=== PATIENT | female | born 1965 | race Caucasian/White ===

== ENCOUNTER → 2024-01-17 12:01 | Outpatient (REF) | payer BC, SELFPAY | LOC: HWRAD 12:01 | PROVIDERS: ATTENDING PHYSICIAN Family Medicine | DX: M79.641 Pain in right hand (principal); M79.642 Pain in left hand | CPT/HCPCS: 73110; 73130 ==

== ENCOUNTER → 2024-03-13 12:21 | Outpatient (REF) | payer BC, SELFPAY ==
[2024-03-19 11:17] LABS: HPV, High Risk Not Detected; HPV, High Risk Source Cervical
== END ==
LOC: CLAB 12:21
PROVIDERS: ATTENDING PHYSICIAN Family Medicine; FAMILY PHYSICIAN Advanced Practice Midwife
DX: Z12.4 Encounter for screening for malignant neoplasm of cervix (principal); Z01.419 Encounter for gynecological examination (general) (routine) without abnormal findings; Z11.51 Encounter for screening for human papillomavirus (HPV)
CPT/HCPCS: 87624; G0123

== ENCOUNTER → 2024-04-20 16:59 | Outpatient (REF) | payer BC, SELFPAY | LOC: WDC 16:59 | PROVIDERS: ATTENDING PHYSICIAN Advanced Practice Midwife; FAMILY PHYSICIAN Physician Assistant Medical | DX: Z12.31 Encounter for screening mammogram for malignant neoplasm of breast (principal) | CPT/HCPCS: 77063; 77067 ==

== ENCOUNTER → 2024-06-08 06:46 | Outpatient (REF) | payer BC, SELFPAY | LOC: RAD 06:46 | PROVIDERS: ATTENDING PHYSICIAN Surgery; FAMILY PHYSICIAN Physician Assistant Medical | DX: K62.3 Rectal prolapse (principal) | CPT/HCPCS: 74270 ==

== ENCOUNTER → 2024-06-12 11:34 | Outpatient (REF) | payer BC, SELFPAY ==
[2024-06-12 19:32] LABS: Urine Albumin Negative (Neg - Trace); Urine Bilirubin Negative (Negative); Urine Character Clear (Clear); Urine Color Straw; Urine Glucose Negative (Negative); Urine Ketone Negative (Negative); Urine Leukocyte Negative (Negative); Urine Nitrite Negative (Negative); Urine Occult Blood Negative (Negative); Urine Specific Gravity 1.005 (<1.030); Urine Urobilinogen Negative (Neg - 1+)
== END ==
LOC: CLAB 11:34
PROVIDERS: ATTENDING PHYSICIAN Obstetrics & Gynecology
DX: N39.0 Urinary tract infection, site not specified (principal)
CPT/HCPCS: 81003; 87086

== ENCOUNTER 2024-07-13 05:59 | Inpatient (IN) | payer BC, SELFPAY ==
[2024-07-04 07:23] VITALS: BMI 19.1
[2024-07-04 08:51] LABS: Hematocrit 31.9 % (37.0-47.0); Hemoglobin 10.8 g/dL (12.0-16.0); Mean Corp Hgb Conc. 33.9 g/dL (33.0-37.0); Mean Corpuscular Hgb 31.3 pg (27.0-31.0); Mean Corpuscular Volume 92.5 fL (81.0-99.0); Mean Platelet Volume 11.6 fL (7.4-10.4); Platelet Count 213 10^3/uL (130-400); Red Blood Cell Count 3.45 10^6/uL (4.20-5.40); Red Cell Dist. Width 12.4 % (11.5-14.5); White Blood Cell Count 7.2 10^3/uL (4.8-10.8)
[2024-07-04 09:06] LABS: INR 0.99; PT 12.9 Sec (11.4-14.6)
[2024-07-04 09:07] LABS: APTT 30.4 Sec (23.4-35.0)
[2024-07-04 09:29] LABS: ALT (SGPT) 16 U/L (0-35); AST (SGOT) 27 U/L (14-36); Albumin 3.8 g/dl (3.5-5.0); Alkaline Phosphatase 116 U/L (38-126); Blood Urea Nitrogen 17 mg/dl (7-17); Calcium 9.5 mg/dl (8.4-10.2); Carbon Dioxide 28 mmol/L (22-30); Chloride 107 mmol/L (98-107); Estimated Creatinine Clearance 50 ml/min; Glucose 83 mg/dl (70-99); Potassium 4.1 mmol/L (3.5-5.1); Sodium 140 mmol/L (135-145); Total Bilirubin 0.4 mg/dl (0.2-1.3); eGFR > 60.00
[2024-07-04 10:11] LABS: Glycohemoglobin (HgbA1c) 5.1 % (4.0-5.6)
[2024-07-13] VITALS (15 sets, daily range): BP systolic 5–123; BP diastolic 47–72; BMI 18.0
[2024-07-13] MEDS: Pyridium 200 MG PO (06:33)
[2024-07-13] MEDS: TYLENOL 1000 MG PO (06:33)
[2024-07-13] MEDS: ENTEREG 12 MG PO (06:34)
[2024-07-13] MEDS: NEURONTIN 600 MG PO (06:34)
[2024-07-13] MEDS: HEPARIN 5000 UNITS SC (06:34)
[2024-07-13] MEDS: NORMOSOL-R 1000 IV (06:45)
--- NOTE | 2024-07-13 12:44 | W.IMMPOSTOP ---
Surgical Immed Post Op Note
-
Primary Surgeon: Ralph Clifford MD
Assisting Surgeon: CHRISTIANNE Alejandro
Pre-op Diagnosis: 1) rectal prolapse 2) constipation
Post-op Diagnosis: same
Procedure Performed: 1) robotic sigmoidectomy with rectopexy 2) flexible sigmoidoscopy
Anesthesia Type: general plus local
Specimen / Cultures: sigmoid colon
Estimated Blood Loss: 150 cc
Complications: no immediate
Operative Findings: redundant sigmoid with deep pouch of Humberto
Locke, stents, ureteral ICG by Dr. Her of urology. R stent removed at end of case
See Dr. Raya's notes for his part of the procedure.
Will send to med surg.
[2024-07-13 13:27] LABS: Glucose - Point of Care 124 mg/dl (70-99)
[2024-07-13 13:35] LABS: % Basophils 0.3 % (0-2); % Eosinophils 0.2 % (0-6); % Immature Granulocytes 0.3 % (0-0.5); % Lymphocytes 7.9 % (20.5-51.1); % Monocytes 2.3 % (1.7-9.3); Absolute Basophils 0.1 10^3/uL (0-0.2); Absolute Lymphocytes 1.1 10^3/uL (1.2-3.4); Absolute Monocytes 0.3 10^3/uL (0.1-0.6); Absolute Neutrophils 12.9 10^3/uL (1.4-6.5); Hematocrit 30.6 % (37.0-47.0); Hemoglobin 10.3 g/dL (12.0-16.0); Mean Corp Hgb Conc. 33.7 g/dL (33.0-37.0); Mean Corpuscular Hgb 31.4 pg (27.0-31.0); Mean Corpuscular Volume 93.3 fL (81.0-99.0); Mean Platelet Volume 10.9 fL (7.4-10.4); Nucleated Red Blood Cells % 0 %; Platelet Count 198 10^3/uL (130-400); Red Blood Cell Count 3.28 10^6/uL (4.20-5.40); Red Cell Dist. Width 12.2 % (11.5-14.5); White Blood Cell Count 14.5 10^3/uL (4.8-10.8)
--- NOTE | 2024-07-13 13:42 | W.SUR.POST ---
Surgical Immediate Post Op
Note
Pre Op Diagnosis: Uterovaginal prolapse and rectocele
Post Op Diagnosis: Uterovaginal prolapse and rectocele
Procedure Performed: Robotic total hysterectomy, BSO, uterosacral ligament suspension, culdoplasty, posterior colporrhaphy, right stent removal
Primary Surgeon: Mahamed Raya MD
Secondary Surgeons: see Dr. Clifford's operative note
Anesthesia: General Anesthesia
Estimated Blood Loss: 150cc
Drains/Shunts: Left ureteral stent in place with Locke catheter
Specimens/Cultures: uterus, bilateral tubes and ovaries
Complications: none
Operative Findings: Advanced stage pelvic organ prolapse
[2024-07-13 13:53] LABS: Blood Urea Nitrogen 12 mg/dl (7-17); Calcium 8.1 mg/dl (8.4-10.2); Carbon Dioxide 25 mmol/L (22-30); Chloride 103 mmol/L (98-107); Estimated Creatinine Clearance 53 ml/min; Glucose 114 mg/dl (70-99); Magnesium 2.1 mg/dl (1.6-2.3); Potassium 3.5 mmol/L (3.5-5.1); Sodium 134 mmol/L (135-145); eGFR > 60.00
[2024-07-13] MEDS: D5LR 1000 IV (14:14)
--- NOTE | 2024-07-13 15:52 | PTCARENOTE ---
pt admitted to room 2119 from the PACU. pt alert and oriented to room, call farrar and plan of care with verbalized understanding. pt tolerating sips of water-denies nausea or abdominal discomfort. admission database and assessment completed as
documented. pt resting in bed. call farrar in reach. will observe.
[2024-07-13] MEDS: TYLENOL PO (16:00)
[2024-07-13] MEDS: TORADOL 10 MG IV (18:05)
[2024-07-13] MEDS: TYLENOL 650 MG PO (20:39)
[2024-07-13] MEDS: OCEAN, SALINE MIST 4 SPRAYS NASAL (20:40)
[2024-07-13] MEDS: NON-FORMULARY ITEM 42 MG PO (21:46)
[2024-07-13] MEDS: LAMICTAL 600 MG PO (21:47)
[2024-07-14] VITALS (8 sets, daily range): BP systolic 86–127; BP diastolic 42–68; BMI 19.4
[2024-07-14] MEDS: TORADOL 10 MG IV ×4 (00:36→23:41)
[2024-07-14] MEDS: TYLENOL 650 MG PO ×5 (00:37→20:33)
[2024-07-14] MEDS: D5LR 1000 IV ×2 (02:26→09:21)
[2024-07-14] MEDS: TYLENOL PO ×3 (04:30→23:44)
[2024-07-14] MEDS: TORADOL IV (06:45)
[2024-07-14 07:49] LABS: Blood Urea Nitrogen 9 mg/dl (7-17); Calcium 8.7 mg/dl (8.4-10.2); Carbon Dioxide 28 mmol/L (22-30); Chloride 106 mmol/L (98-107); Estimated Creatinine Clearance 57 ml/min; Glucose 120 mg/dl (70-99); Magnesium 2.1 mg/dl (1.6-2.3); Sodium 136 mmol/L (135-145); eGFR > 60.00
--- NOTE | 2024-07-14 07:58 | W.PN.GYN ---
Today's Communication / Plan
-
1. Remove lazo and left ureteral stent
Physician Note
-
Assessment and Plan:
59 yo woman POD 1 s/p robotic TLH, BSO, uterosacral ligament suspension (USLS), posterior colporrhaphy, right stent removal, Bowel resection and rectopexy (Dr. Clifford): postoperatively she is stable with no acute complaints. Her renal function is
normal and therefore can have her lazo and stent removed.
1. Postop Urogyn Care
-Remove lazo catheter and stent
-Vaginal packing removed on rounds this morning
-BMP: WNL
-CMC: pending
-UOP: adequate
-Diet: per colorectal surgery recommendations
Subjective:
pain well controlled. no acute complaints. has not ambulated due to low blood pressures. Oxygen in place. denies nausea/vomiting, fevers/chills, chest pain or sob.
Objective:
Intake and Output
07/12/24 07/13/24 07/14/24 07/15/24
06:59 06:59 06:59 06:59
Intake Total 1889
Output Total 1929
Balance -40 / -40
Intake:
Oral fluids 120 / 120
IV fluids (Total) 1770 / 1770
Normosol 500 / 500
Output:
Drain Output (Total) 5 / 5
Right Upper Abdomen Kain- 5 / 5
Voss
Urine, Lazo 1924 / 1924
Vital Signs
Temp Pulse Resp BP Pulse Ox
99.3 F 70 16 88/56 100
07/14/24 07:00 07/14/24 07:00 07/14/24 07:00 07/14/24 07:00 07/14/24 07:00
Lab Results
07/14/24 06:38
Exam:
: lazo in place, no significant vaignal bleeding
Abdomen: soft, nontender, nondistended
Incision: clean, dry, intact.
[2024-07-14 08:36] LABS: Hepatitis C Antibody Negative (Negative)
[2024-07-14 09:17] LABS: % Basophils 0.2 % (0-2); % Eosinophils 0.2 % (0-6); % Immature Granulocytes 0.4 % (0-0.5); % Lymphocytes 13.8 % (20.5-51.1); % Monocytes 5.1 % (1.7-9.3); % Neutrophils 80.3 % (42.2-75.2); Absolute Lymphocytes 1.4 10^3/uL (1.2-3.4); Absolute Monocytes 0.5 10^3/uL (0.1-0.6); Absolute Neutrophils 8.1 10^3/uL (1.4-6.5); Hematocrit 25.9 % (37.0-47.0); Hemoglobin 8.7 g/dL (12.0-16.0); Mean Corp Hgb Conc. 33.6 g/dL (33.0-37.0); Mean Corpuscular Hgb 30.7 pg (27.0-31.0); Mean Corpuscular Volume 91.5 fL (81.0-99.0); Mean Platelet Volume 11.2 fL (7.4-10.4); Nucleated Red Blood Cells % 0 %; Platelet Count 154 10^3/uL (130-400); Red Blood Cell Count 2.83 10^6/uL (4.20-5.40); Red Cell Dist. Width 12.2 % (11.5-14.5); White Blood Cell Count 10.1 10^3/uL (4.8-10.8)
[2024-07-14] MEDS: ENTEREG 12 MG PO (09:22)
[2024-07-14] MEDS: PROTONIX 40 MG PO (09:22)
[2024-07-14] MEDS: CYMBALTA DELAYED RELEASE 90 MG PO (09:22)
[2024-07-14] MEDS: OCEAN, SALINE MIST 50 SPRAYS NASAL (09:23)
--- NOTE | 2024-07-14 11:20 | W.PN.CRS1 ---
Today's Communication / Plan
-
Clears
Lovenox
Hospitalist
Continue drain
Assessment/Plan
-
POD#1 Robotic total hysterectomy, BSO, uterosacral ligament suspension, culdoplasty, posterior colporrhaphy, right stent removal
- Hypotensive this morning. Continue IV fluids at 150 mL/h.
-Hemoglobin was rechecked this morning due to decreased of 8.7 from 10.3. Recheck shows 9.1. Will continue to trend in AM.
-Start Lovenox today for DVT prophylaxis. Teds and SCDs in place.
-Hyperglycemia despite n.p.o. status. Will consult hospitalist.
-Continue Locke today. DC in AM.
-OR stent #2 removed at bedside this morning.
-OR pathology pending.
-Continue OR drain until discharge.
-Start on a clear liquid diet.
-Pain control: Tylenol and Toradol standing, Dilaudid as needed.
Subjective Data
Procedure
07/13/2024- Robotic total hysterectomy, BSO, uterosacral ligament suspension, culdoplasty, posterior colporrhaphy, right stent removal
Subjective Data
Date of Service: July 14, 2024
Patient states she feels achy all over but her pain is well-controlled. She has no nausea or vomiting. She is hungry. She is looking forward to getting out of bed.
Objective Data
-
Vital Signs
Temp Pulse Resp BP Pulse Ox
99.7 F 78 18 92/59 98
07/14/24 11:00 07/14/24 11:00 07/14/24 11:00 07/14/24 11:00 07/14/24 11:00
Intake & Output
07/13/24 07/14/24 07/15/24
06:59 06:59 06:59
Intake Total 1889
Output Total 1929
Balance -40 / -40
Intake:
Oral fluids 120 / 120
IV fluids (Total) 1769
Normosol 500 / 500
Output:
Drain Output (Total)
Right Upper Abdomen Kain-
Voss
Urine, Locke 1924 / 1924
Lab Results
07/14/24 06:38
Physical Exam
-
General: No Acute Distress and AOx3
Abdomen: Soft, Non Distended and Non Tender
Skin: Warm and Dry
Incision: Clear, Dry, Intact
[2024-07-14 11:27] LABS: Hematocrit 26.7 % (37.0-47.0); Hemoglobin 9.1 g/dL (12.0-16.0)
--- NOTE | 2024-07-14 13:56 | CON.HOSP ---
Consultation
-
Date/Time Consultation Requested: 07/14/2024
Date/Time Consultation Performed: 07/14/2024
Requesting Provider: Dr Clifford
Performing Provider: Dr Preston
Reason for Consultation: Hyperglycemia and hypotension
Family Physician
-
Family Physician: Stacey Ramos PA-C
Chief Complaint
-
Hyperglycemia and hypotension
History of Present Illness
Patient is a 59 years old female who underwent robotic total hysterectomy/BSO on 07/13. Uneventful procedure.
Patient was found to be mildly hypotensive with SBP in 80s, although without symptoms. In addition patient has been hyperglycemic with blood glucose elevated at 220s while NPO.
Medicine has been requested to follow patient for perioperative management.
Medical History
Past Medical History
Past Medical History: Denies CAD, Cancer, CHF or HTN
Past Surgical History: Reports Other (Umbilical hernia repair, tonsillectomy)
Social History
Tobacco: Non-smoker
Alcohol: None
Drug: None
Personal:
Living: With Family
Allergies / Home Medications
Allergies reflects when Allergies were last updated in [facility].
Home Medications with original date entered in [facility]
Allergy/Medication List:
Allergies
Allergy/AdvReac Type Severity Reaction Status Date / Time
prochlorperazine edisylate Allergy Intermediate Unknown Verified 07/13/24 06:15
[From Compazine]
prochlorperazine maleate Allergy Intermediate Unknown Verified 07/13/24 06:15
[From Struttaazine]
Home Medications
Beano 2 tab PO TID GAS 07/06/24
Florastor 1 tab PO BID Gastrointestinal Issue 07/06/24
clonazepam 0.5 mg tablet 0.5 mg PO TID Mental Health/Anxiety 07/06/24
duloxetine 30 mg capsule,delayed release 90 mg PO DAILY Depression 07/06/24
lamotrigine 200 mg tablet 600 mg PO HS Seizures 07/06/24
lumateperone 42 mg capsule (Caplyta) 42 mg PO HS bipolar 07/06/24
metronidazole 500 mg tablet 500 mg PO .1400.1499.0 bowel prep 07/06/24
mometasone 50 mcg/actuation HFA aerosol inhaler 50 mcg inhalation HS Lung/Breathing Issues 07/06/24
naproxen 500 mg tablet 500 mg PO BID pain/inflam 07/06/24
neomycin 500 mg tablet 1,000 mg PO .[id number] bowel prep 07/06/24
psyllium 1 packet PO BID Constipation 07/06/24
sodium chloride 0.9 % nasal spray aerosol 2 spray intranasal BID Congestion 07/06/24
sodium sul 1.479 gram-potas ch 0.188 gram-magnes sul 0.225 gram tablet (Sutab) 24 tab PO DIRECTED bowel prep 07/06/24
clonazepam 0.5 mg tablet 0.5 mg PO DAILY PRN anxiety 07/13/24
Review of Systems
-
A 12 point Review of Systems was completed except as noted: Yes
Physical Exam
Vital Signs
Vital Signs
Temp Pulse Resp BP Pulse Ox
99.7 F 78 18 92/59 98
07/14/24 11:00 07/14/24 11:00 07/14/24 11:00 07/14/24 11:00 07/14/24 11:00
Physical Exam
General: Well Developed, Well Nourished and No Apparent Distress
HEENT: Normocephalic, Moist Mucous Membranes and Atraumatic
Respiratory: Clear
Cardiac: S1/S2 and Regular Rhythm; Negative Murmur or Rub
GI: Soft, Non Tender, Non Distended and Normal Bowel Sounds
Rectal: Deferred by Provider
Genito-urinary: Locke Catheter (With bloodstained urine without clots)
Musculoskeletal: No Clubbing, No Cyanosis and No Edema
Skin: Negative Rash
Neuro: Awake, Alert, Oriented, AO x 3 and Nonfocal/Grossly Intact
Laboratory Results
-
Laboratory Results
07/14/24 11:17
07/14/24 06:38
PT 12.9 Sec (11.4-14.6) 07/04/24 07:13
INR 0.99 07/04/24 07:13
APTT 30.4 Sec (23.4-35.0) 07/04/24 07:13
Total Bilirubin 0.4 mg/dl (0.2-1.3) 07/04/24 07:13
AST 27 U/L (14-36) 07/04/24 07:13
ALT 16 U/L (0-35) 07/04/24 07:13
Alkaline Phosphatase 116 U/L (38-126) 07/04/24 07:13
Impression / Plan
-
IMPRESSION:
Uterine prolapse, status post robotic total hysterectomy, BSO, uterosacral ligament suspension, culdoplasty, posterior colporrhaphy on 07/13.
Bilateral hydronephrosis status post cystoscopy and bilateral stent placement on 07/13, Locke catheter in place.
Mild asymptomatic hypotension on 07/14.
Acute postoperative anemia with likely dilutional effect
Hyperglycemia while on D5 infusion
Other conditions:
Anxiety/depression/bipolar disorder
PLAN:
Mild asymptomatic hypotension.
Does not appear toxic or in distress on physical exam.
Afebrile.
Postoperative site without problem
WBC improved from 14.5-10
So far response to normotonic solution with improved BP.
Monitor closely
Postoperative anemia noted drop in hemoglobin from 10.8-8 0.7�9.1 also suspect dilutional effect.
Noted with bloodstained urine in Locke catheter without clots.
Monitor closely
Currently no indication for transfusion unless persistent hypotension, or/further drop
Hyperglycemia.
Suspect while on glucose infusion.
No prior history of diabetes.
Check hemoglobin A1c for completeness.
Change IV fluids to lactated Ringer eliminating D5.
Diet has been advanced to clear liquids.
Bipolar disorder, anxiety
Continue preadmission regimen including clonazepam, duloxetine, lamotrigine, Caplyta.
Thank you for allowing us to participate in the care of this patient.
Hospitalist/medicine service will follow along
[2024-07-14] MEDS: LR 1000 IV ×2 (15:05→23:40)
[2024-07-14] MEDS: KLONOPIN 0.5 MG PO ×2 (15:07→21:57)
--- NOTE | 2024-07-14 15:35 | CM ---
Met with patient at bedside; initial assessment completed
Pharmacy verified: [facility] @ [address] [address]
Patient and spouse live in a multilevel home; 2 steps to enter; 10-11 steps between floors; railings present; powder room 1st floor; 2nd floor master bath has stall shower
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
DME: none
SNF/Home Health utilization history: none
Transportation: will provide ride home
Plan: discharge to home; CM will monitor for needs/services
[2024-07-14] MEDS: LOVENOX 40 MG SC (17:24)
[2024-07-14] MEDS: OCEAN, SALINE MIST 1 SPRAYS NASAL (20:34)
[2024-07-14] MEDS: ENTEREG PO (21:01)
[2024-07-14] MEDS: LAMICTAL 600 MG PO (21:57)
[2024-07-14] MEDS: NON-FORMULARY ITEM 42 MG PO (21:57)
[2024-07-15 01:18] VITALS: BP 119/64
[2024-07-15] MEDS: TYLENOL PO ×3 (04:38→23:48)
[2024-07-15 06:00] VITALS: BMI 19.0
[2024-07-15] MEDS: TORADOL 10 MG IV ×4 (06:12→23:42)
[2024-07-15] MEDS: LR 1000 IV ×2 (07:35→14:24)
[2024-07-15 07:50] VITALS: BP 139/89
[2024-07-15 08:29] LABS: % Basophils 0.4 % (0-2); % Eosinophils 1.9 % (0-6); % Immature Granulocytes 0.5 % (0-0.5); % Lymphocytes 7.5 % (20.5-51.1); % Neutrophils 84.7 % (42.2-75.2); Absolute Eosinophils 0.2 10^3/uL (0-0.7); Absolute Immature Granulocytes 0.1 10^3/uL (0-0.05); Absolute Lymphocytes 0.7 10^3/uL (1.2-3.4); Absolute Monocytes 0.5 10^3/uL (0.1-0.6); Absolute Neutrophils 8.4 10^3/uL (1.4-6.5); Hematocrit 29.2 % (37.0-47.0); Mean Corp Hgb Conc. 34.2 g/dL (33.0-37.0); Mean Corpuscular Hgb 32.2 pg (27.0-31.0); Mean Corpuscular Volume 93.9 fL (81.0-99.0); Mean Platelet Volume 11.4 fL (7.4-10.4); Nucleated Red Blood Cells % 0 %; Platelet Count 168 10^3/uL (130-400); Red Blood Cell Count 3.11 10^6/uL (4.20-5.40); Red Cell Dist. Width 12.5 % (11.5-14.5); White Blood Cell Count 9.9 10^3/uL (4.8-10.8)
[2024-07-15] MEDS: CYMBALTA DELAYED RELEASE 90 MG PO (08:36)
[2024-07-15] MEDS: PROTONIX 40 MG PO (08:36)
[2024-07-15] MEDS: TYLENOL 650 MG PO ×4 (08:36→20:25)
[2024-07-15] MEDS: KLONOPIN 0.5 MG PO ×3 (08:36→21:39)
[2024-07-15] MEDS: ENTEREG PO ×2 (08:37→20:25)
[2024-07-15] MEDS: OCEAN, SALINE MIST 50 SPRAYS NASAL (08:37)
[2024-07-15 09:41] LABS: Blood Urea Nitrogen 9 mg/dl (7-17); Calcium 9.2 mg/dl (8.4-10.2); Carbon Dioxide 29 mmol/L (22-30); Chloride 106 mmol/L (98-107); Estimated Creatinine Clearance 45 ml/min; Glucose 86 mg/dl (70-99); Potassium 4.1 mmol/L (3.5-5.1); Sodium 138 mmol/L (135-145); eGFR > 60.00
[2024-07-15] MEDS: DILAUDID 0.5 MG IV (09:44)
--- NOTE | 2024-07-15 09:49 | W.PN.HOSP.TC ---
Today's Communication/Plan
-
Continue to monitor and supportive care.
Assessment / Plan
Assessment / Plan
Physical exam:
General: Well Developed, Well Nourished and No Apparent Distress
HEENT: Normocephalic, Atraumatic and Moist Mucous Membranes
Respiratory: Clear to Auscultation; Negative Wheezes, Rales or Rhonchi
Cardiac: Regular Rhythm and S1/S2
GI: Postop findings. Drain in place. Soft, Mild Tender and Nondistended
Musculoskeletal: No Clubbing, No Cyanosis and No Edema
Neuro: Awake, Alert and Oriented
Psych: Calm
A/P:
IMPRESSION:
Uterine prolapse, status post robotic total hysterectomy, BSO, uterosacral ligament suspension, culdoplasty, posterior colporrhaphy on 07/13.
Bilateral hydronephrosis status post cystoscopy and bilateral stent placement on 07/13, Locke catheter in place.
Mild asymptomatic hypotension on 07/14.
Acute postoperative anemia with likely dilutional effect
Hyperglycemia while on D5 infusion
Other conditions:
Anxiety/depression/bipolar disorder
PLAN:
Mild asymptomatic hypotension.
Does not appear toxic or in distress on physical exam.
Afebrile.
Postoperative site without problem and surgery advancing diet
WBC improved from 14.5-10-->9.9 today
So far response to normotonic solution with improved BP. Latest BP 139/89
Monitor closely
Postoperative anemia noted drop in hemoglobin from 10.8-8 0.7�9.1 also suspect dilutional effect. Today Hb is 10
Noted with bloodstained urine in Locke catheter without clots.
Monitor closely
Currently no indication for transfusion unless persistent hypotension, or/further drop
Hyperglycemia.
Suspect while on glucose infusion.
No prior history of diabetes.
Check hemoglobin A1c for completeness-->5.0
Change IV fluids to lactated Ringer eliminating D5.
Diet has been advanced to clear liquids.
Bipolar disorder, anxiety
Continue preadmission regimen including clonazepam, duloxetine, lamotrigine, Caplyta.
Thank you for allowing us to participate in the care of this patient.
Hospitalist/medicine service will follow along
Anticipated Discharge: 24 - 48 hours
Subjective/Interval History
-
Date of Service: July 15, 2024
Patient more abdominal pain today but on the other hand no chest pain or shortness of breath or lightheadedness. Overall feels better.
Objective Data
-
Labs:
Laboratory Results
07/15/24
08:15
WBC 9.9
Hgb 10.0 L
Hct 29.2 L
Plt Count 168
Sodium 138
Potassium 4.1
Chloride 106
Carbon Dioxide 29
BUN 9
Creatinine 1.0
Glucose 86
Calcium 9.2
Vital Signs:
Vital Signs
Temp Pulse Resp BP Pulse Ox
98.7 F 77 16 139/89 98
07/15/24 07:50 07/15/24 07:50 07/15/24 07:50 07/15/24 07:50 07/15/24 07:50
I&O
07/14/24 07/15/24 07/16/24
06:59 06:59 06:59
Intake Total 1890 / 1890 1900 / 1900 850 / 850
Output Total 1929 / 1930 3430 / 3430 1840 / 1840
Balance -40 / -40 -1530 / -1530 -990 / -990
--- NOTE | 2024-07-15 13:57 | W.PN.CRS1 ---
Today's Communication / Plan
-
Advance diet
Assessment/Plan
-
59 yo female with h/o rectal/pelvic prolapse now POD #2 Robotic sigmoidectomy with rectopexy, total hysterectomy, BSO, uterosacral ligament suspension, culdoplasty, posterior colporrhaphy
AFVSS
Labs stable
+flatus/stools, tolerating CLD
Stents/lazo out and patient voiding with some hesitancy but feels she is emptying
-Advance to FLD
-IVF at 75ml/hr
-Continue Lovenox today for DVT prophylaxis. Teds and SCDs in place.
-OR pathology pending.
- C/W home meds
-Continue EMILY drain until discharge.
-Pain control: Tylenol and Toradol standing, Oxycodone, Dilaudid as needed.
Subjective Data
Procedure
07/13/2024- Robotic sigmoidectomy with rectopexy, total hysterectomy, BSO, uterosacral ligament suspension, culdoplasty, posterior colporrhaphy, right stent removal
Subjective Data
Date of Service: July 15, 2024
Patient seen and examined at bedside. Denies n/v. Pain a little worse today, required a dose of dilaudid earlier. Passing flatus and liquid stools. Episode of incontinence last night. Voiding with some hesitancy but able to empty her bladder.
Objective Data
-
Vital Signs
Temp Pulse Resp BP Pulse Ox
98.7 F 77 16 139/89 98
07/15/24 07:50 07/15/24 07:50 07/15/24 07:50 07/15/24 07:50 07/15/24 08:00
Intake & Output
07/14/24 07/15/24 07/16/24
06:59 06:59 06:59
Intake Total 1890 / 1890 1900 / 1900 850 / 850
Output Total 1930 / 0 3430 / 3430 1840 / 1840
Balance -40 / -40 -1530 / -1530 -990 / -990
Intake:
Oral fluids 120 / 120 600 / 600
IV fluids (Total) 1770 / 1770 1300 / 1300 850 / 850
Normosol 500 / 500
Output:
Drain Output (Total) 80 / 80 90 / 90
Right Upper Abdomen Kain- 80 / 80 90 / 90
Voss
Urine, Lazo 1925 / 192 3350 / 3350 1750 / 1750
Other:
Number of unmeasured liquid
stools
Rectum 1
Lab Results
07/15/24 08:15
07/15/24 08:15
Physical Exam
-
General: No Acute Distress and AOx3
Abdomen: Soft, Non Distended, Non Tender and Other (EMILY with SSF)
Skin: Warm and Dry
Incision: Clear, Dry, Intact (dermabond)
[2024-07-15 15:30] VITALS: BP 115/68
[2024-07-15] MEDS: ROXICODONE 5 MG PO ×2 (16:10→20:29)
[2024-07-15] MEDS: LOVENOX 40 MG SC (17:45)
[2024-07-15] MEDS: OCEAN, SALINE MIST 1 SPRAYS NASAL (20:25)
[2024-07-15] MEDS: NON-FORMULARY ITEM 42 MG PO (21:39)
[2024-07-15] MEDS: LAMICTAL 600 MG PO (21:39)
[2024-07-15 23:18] VITALS: BP 128/74
[2024-07-16] MEDS: LR 1000 IV (03:00)
[2024-07-16] MEDS: TYLENOL PO (04:32)
[2024-07-16] MEDS: TORADOL 10 MG IV ×2 (06:00→12:15)
[2024-07-16 07:40] VITALS: BP 112/64
[2024-07-16] MEDS: TYLENOL 650 MG PO ×3 (08:33→16:29)
[2024-07-16] MEDS: CYMBALTA DELAYED RELEASE 90 MG PO (08:33)
[2024-07-16] MEDS: OCEAN, SALINE MIST 2 SPRAYS NASAL (08:33)
[2024-07-16] MEDS: ENTEREG PO (08:34)
[2024-07-16] MEDS: PROTONIX 40 MG PO (08:34)
[2024-07-16] MEDS: KLONOPIN 0.5 MG PO ×2 (08:34→16:29)
--- NOTE | 2024-07-16 09:09 | W.PN.HOSP.TC ---
Today's Communication/Plan
-
Medically clear for discharge. Rest of plan per surgery.
Assessment / Plan
Assessment / Plan
Physical exam:
General: Well Developed, Well Nourished and No Apparent Distress
HEENT: Normocephalic, Atraumatic and Moist Mucous Membranes
Respiratory: Clear to Auscultation; Negative Wheezes, Rales or Rhonchi
Cardiac: Regular Rhythm and S1/S2
GI: Postop findings. Drain in place. Soft, Non-Tender and Nondistended
Musculoskeletal: No Clubbing, No Cyanosis and No Edema
Neuro: Awake, Alert and Oriented
Psych: Calm
A/P:
IMPRESSION:
Uterine prolapse, status post robotic total hysterectomy, BSO, uterosacral ligament suspension, culdoplasty, posterior colporrhaphy on 07/13.
Bilateral hydronephrosis status post cystoscopy and bilateral stent placement on 07/13, Locke catheter in place.
Mild asymptomatic hypotension on 07/14.
Acute postoperative anemia with likely dilutional effect
Hyperglycemia while on D5 infusion
Other conditions:
Anxiety/depression/bipolar disorder
PLAN:
Mild asymptomatic hypotension.
Does not appear toxic or in distress on physical exam.
Afebrile.
Postoperative site without problem and surgery advancing diet
WBC improved from 14.5-->7.9 today
So far response to normotonic solution with improved BP. Latest BP 112/64 today
Can stop IV fluids today.
Medically stable for discharge but defer to surgery as to readiness from surgical standpoint.
Postoperative anemia noted drop in hemoglobin from 10.8-8 0.7�9.1 also suspect dilutional effect. Yesterday Hb was 10 and today 9.3 with also component of dilutional.
Noted with bloodstained urine in Locke catheter without clots.
Monitor closely
Currently no indication for transfusion
Hyperglycemia.
Suspect while on glucose infusion.
No prior history of diabetes.
Check hemoglobin A1c for completeness-->5.0
Change IV fluids to lactated Ringer eliminating D5.
Diet has been advanced to low residue
Bipolar disorder, anxiety
Continue preadmission regimen including clonazepam, duloxetine, lamotrigine, Caplyta.
Thank you for allowing us to participate in the care of this patient.
Hospitalist/medicine service will sign off but please do not hesitate to contact us if any questions or concerns.
Anticipated Discharge: Today
Subjective/Interval History
-
Date of Service: July 16, 2024
Blood pressure stable. No new complaints. Tolerating diet. Ambulating. No chest pain or shortness of breath or lightheadedness.
Objective Data
-
Labs:
Laboratory Results
07/16/24
08:27
WBC Pending
Hgb Pending
Hct Pending
Plt Count Pending
Sodium Pending
Potassium Pending
Chloride Pending
Carbon Dioxide Pending
BUN Pending
Creatinine Pending
Glucose Pending
Calcium Pending
Vital Signs:
Vital Signs
Temp Pulse Resp BP Pulse Ox
98.7 F 78 14 112/64 96
07/16/24 07:40 07/16/24 07:40 07/16/24 07:40 07/16/24 07:40 07/16/24 07:40
I&O
07/15/24 07/16/24 07/17/24
06:59 06:59 06:59
Intake Total 1900 / 1900 2710 / 2710
Output Total 3430 / 3430 2615 / 2615
Balance -1530 / -1530 95 / 95
[2024-07-16 09:11] LABS: Hematocrit 27.3 % (37.0-47.0); Hemoglobin 9.3 g/dL (12.0-16.0); Mean Corp Hgb Conc. 34.1 g/dL (33.0-37.0); Mean Corpuscular Volume 93.8 fL (81.0-99.0); Mean Platelet Volume 11.4 fL (7.4-10.4); Platelet Count 187 10^3/uL (130-400); Red Blood Cell Count 2.91 10^6/uL (4.20-5.40); Red Cell Dist. Width 12.2 % (11.5-14.5); White Blood Cell Count 7.9 10^3/uL (4.8-10.8)
[2024-07-16 09:58] LABS: Blood Urea Nitrogen 9 mg/dl (7-17); Calcium 9.1 mg/dl (8.4-10.2); Carbon Dioxide 30 mmol/L (22-30); Chloride 105 mmol/L (98-107); Estimated Creatinine Clearance 50 ml/min; Glucose 84 mg/dl (70-99); Potassium 3.8 mmol/L (3.5-5.1); Sodium 138 mmol/L (135-145); eGFR > 60.00
--- NOTE | 2024-07-16 12:45 | W.PN.CRS1 ---
Today's Communication / Plan
-
LRD
Assessment/Plan
-
59 yo female with h/o rectal/pelvic prolapse now POD #3 Robotic sigmoidectomy with rectopexy, total hysterectomy, BSO, uterosacral ligament suspension, culdoplasty, posterior colporrhaphy
AFVSS
Labs stable
+flatus/stools, tolerating fld
-Advance to LRD
-D/C IVF
-Continue Lovenox today for DVT prophylaxis. Teds and SCDs in place.
-OR pathology pending.
- C/W home meds
-Continue EMILY drain until discharge.
-Pain control: Tylenol and Toradol standing, Oxycodone, Dilaudid as needed.
Tentative d/c later today vs tomorrow pending diet tolerance
Subjective Data
Procedure
07/13/2024- Robotic sigmoidectomy with rectopexy, total hysterectomy, BSO, uterosacral ligament suspension, culdoplasty, posterior colporrhaphy, right stent removal
Subjective Data
Date of Service: July 16, 2024
Patient seen and examined at bedside with Dr. Mcnulty. Cramping pain improved. Passing flatus and stools. Having more control over bm's. Tolerating diet without n/v.
Objective Data
-
Vital Signs
Temp Pulse Resp BP Pulse Ox
98.7 F 78 14 112/64 96
07/16/24 07:40 07/16/24 07:40 07/16/24 07:40 07/16/24 07:40 07/16/24 07:40
Intake & Output
07/15/24 07/16/24 07/17/24
06:59 06:59 06:59
Intake Total 1900 / 1900 2710 / 2710
Output Total 3430 / 3430 2615 / 2615
Balance -1530 / -1530 95 / 95
Intake:
Oral fluids 600 / 600 960 / 960
IV fluids (Total) 1300 / 1300 1750 / 1750
Output:
Drain Output (Total) 80 / 80 165 / 165
Right Upper Abdomen Kain- 80 / 80 165 / 165
Voss
Urine, Locke 3350 / 3350 1750 / 1750
Urine, Voided 700 / 700
Other:
Number of approximated MODERATE 1
amounts of urine
Number of unmeasured liquid
stools
Rectum 1
Lab Results
07/16/24 08:27
07/16/24 08:27
Physical Exam
-
General: No Acute Distress and AOx3
Abdomen: Soft, Non Distended, Non Tender and Other (EMILY with SSF)
Skin: Warm and Dry
Incision: Clear, Dry, Intact (dermabond)
[2024-07-16 15:15] VITALS: BP 116/66
--- NOTE | 2024-07-16 16:49 | W.DCSUMMARY ---
Discharge Summary
Discharge Data
Date of Admission: 07/13/24
Date of Discharge: 07/16/24
-
Pending Results: No
Hospital Course
59 yo female with h/o rectal/pelvic prolapse who presented for operative management with robotic sigmoidectomy with rectopexy, total hysterectomy, BSO, uterosacral ligament suspension, culdoplasty, posterior colporrhaphy. She tolerated the procedure
well without complication. She was able to void without difficulty after removal of lazo. She was able to tolerate dietary advancements with passage of stool and flatus. Pain was well managed with oral agents. The EMILY drain which was placed
intraoperatively was removed on day of discharge.
Discharge Plan
-
Patient Disposition: Home (Routine Discharge)
Discharge Diagnosis/Procedures: Robotic sigmoidectomy with rectopexy, total hysterectomy, BSO, uterosacral ligament suspension, culdoplasty, posterior colporrhaphy
Condition: Good
Diet: Low Fiber
Activity: No strenuous activity
Additional Activity: Do not lift over 10lbs (gallon of milk)
Driving Restrictions: Wait until off narcotics/comfortable twisting
Bathing Restrictions: OK to Shower
Wound Care: Wash incisions gently with soap and water. Allow the glue to flake off on its own. Cover the area where your drain was with a dry gauze dressing and change daily after showering. Once drainage no longer noted, ok to leave dressing off
Activity Restrictions/Additional Instructions:
Call your surgeon if you have a fever >100.5, nausea or vomiting or worsening abdominal pain
Referrals:
Evelio Clifford MD [Active] - in two to four weeks
Stacey Ramos PA-C [Family Provider] -
Mahamed Raya MD [Active] - in two to four weeks
Prescriptions:
New
oxycodone 5 mg tablet
5 mg PO Q4HPRN PRN (Reason: breakthrough/severe pain) Qty: 20 0RF
acetaminophen [acetaminophen] 325 mg tablet
650 mg PO Q4HPRN PRN (Reason: mild pain) Qty: 1 0RF
Continued
lamotrigine 200 mg Tablet
600 mg PO HS
clonazepam 0.5 mg Tablet
0.5 mg PO TID
naproxen 500 mg Tablet
500 mg PO BID
duloxetine 30 mg Capsule,Delayed Release(Dr/Ec)
90 mg PO DAILY
sodium chloride 0.9 % Aerosol,[place]
2 spray INTRANASAL BID
Caplyta 42 mg Capsule
42 mg PO HS
mometasone 50 mcg/actuation Hfa Aerosol Inhaler
50 mcg INHALATION HS
Rx Instructions:
2 sprays at bedtime
Beano
2 tab PO TID
Florastor
1 tab PO BID
clonazepam 0.5 mg Tablet
0.5 mg PO DAILY PRN (Reason: anxiety)
Rx Instructions:
may take an additional 0.5mg po as needed, along with the TID dose.
Held
psyllium Packet
1 packet PO BID
Hold Instructions: Resume on 08/06/24. hold until your follow up appointment
Discontinued
metronidazole 500 mg Tablet
500 mg PO ..0
Rx Instructions:
Pre op the day before surgery
neomycin 500 mg Tablet
1,000 mg PO .
Rx Instructions:
Pre op the day before surgery
Sutab 1.479-0.188- 0.225 gram Tablet
24 tab PO DIRECTED
Rx Instructions:
Bowel prep afternoon/evening before surgery
Discharge Orders:
Discharge Patient (As Directed); Ordered 07/16/24
Ordered By: Tatiana Flower
Discharge Date and Time
Print Language: AMHARIC
== END 2024-07-16 18:15 | disposition home or self-care (01) | DRG 330 ==
LOC: 2 SOUTH 05:59
PROVIDERS: Obstetrics & Gynecology; Physician Assistant; Specialist; ADMITTING PHYSICIAN Surgery; CONSULT PHYSICIAN Hospitalist; FAMILY PHYSICIAN Physician Assistant Medical
PROC: 0USG4ZZ Reposition Vagina, Percutaneous Endoscopic Approach (ICD-10-PCS; 2024-07-13)
PROC: 0UT74ZZ Resection of Bilateral Fallopian Tubes, Percutaneous Endoscopic Approach (ICD-10-PCS; 2024-07-13)
PROC: 0DTN4ZZ Resection of Sigmoid Colon, Percutaneous Endoscopic Approach (ICD-10-PCS; 2024-07-13)
PROC: 0JQC3ZZ Repair Pelvic Region Subcutaneous Tissue and Fascia, Percutaneous Approach (ICD-10-PCS; 2024-07-13)
PROC: 0UT94ZZ Resection of Uterus, Percutaneous Endoscopic Approach (ICD-10-PCS; 2024-07-13)
PROC: 8E0W4CZ Robotic Assisted Procedure of Trunk Region, Percutaneous Endoscopic Approach (ICD-10-PCS; 2024-07-13)
PROC: 0T788DZ Dilation of Bilateral Ureters with Intraluminal Device, Via Natural or Artificial Opening Endoscopic (ICD-10-PCS; 2024-07-13)
PROC: 0DJD8ZZ Inspection of Lower Intestinal Tract, Via Natural or Artificial Opening Endoscopic (ICD-10-PCS; 2024-07-13)
PROC: 0DSP4ZZ Reposition Rectum, Percutaneous Endoscopic Approach (ICD-10-PCS; 2024-07-13)
DX: K62.3 Rectal prolapse (principal); N13.39 Other hydronephrosis; Q43.8 Other specified congenital malformations of intestine; K59.00 Constipation, unspecified; N81.4 Uterovaginal prolapse, unspecified; N80.03 Adenomyosis of the uterus; D25.9 Leiomyoma of uterus, unspecified
CPT/HCPCS: 88305; 88307; 36415; 80048; 80053; 82962; 83036; 83735; 85014; 85018; 85025; 85027; 85610; 85730; 86803; 86850; 86900; 86901; 93005; J1335

== ENCOUNTER → 2024-09-14 16:47 | Outpatient (REF) | payer BC, SELFPAY ==
[2024-09-14 17:24] LABS: % Basophils 0.9 % (0-2); % Eosinophils 4.1 % (0-6); % Immature Granulocytes 0.3 % (0-0.5); % Lymphocytes 22.8 % (20.5-51.1); % Monocytes 6.5 % (1.7-9.3); % Neutrophils 65.4 % (42.2-75.2); Absolute Basophils 0.1 10^3/uL (0-0.2); Absolute Eosinophils 0.4 10^3/uL (0-0.7); Absolute Monocytes 0.6 10^3/uL (0.1-0.6); Absolute Neutrophils 5.7 10^3/uL (1.4-6.5); Hematocrit 29.3 % (37.0-47.0); Hemoglobin 9.8 g/dL (12.0-16.0); Mean Corp Hgb Conc. 33.4 g/dL (33.0-37.0); Mean Corpuscular Hgb 31.2 pg (27.0-31.0); Mean Corpuscular Volume 93.3 fL (81.0-99.0); Mean Platelet Volume 11.5 fL (7.4-10.4); Nucleated Red Blood Cells % 0 %; Platelet Count 218 10^3/uL (130-400); Red Blood Cell Count 3.14 10^6/uL (4.20-5.40); Red Cell Dist. Width 13.1 % (11.5-14.5); White Blood Cell Count 8.8 10^3/uL (4.8-10.8)
[2024-09-14 17:51] LABS: ALT (SGPT) 24 U/L (0-35); AST (SGOT) 29 U/L (14-36); Albumin 4.1 g/dl (3.5-5.0); Alkaline Phosphatase 94 U/L (38-126); Blood Urea Nitrogen 20 mg/dl (7-17); Calcium 9.6 mg/dl (8.4-10.2); Carbon Dioxide 29 mmol/L (22-30); Chloride 99 mmol/L (98-107); Glucose 74 mg/dl (70-99); Potassium 4.6 mmol/L (3.5-5.1); Sodium 138 mmol/L (135-145); Total Bilirubin 0.4 mg/dl (0.2-1.3); Total Protein 6.8 g/dl (6.3-8.2); eGFR > 60.00
== END ==
LOC: REG 16:47
PROVIDERS: ATTENDING PHYSICIAN Surgery; FAMILY PHYSICIAN Physician Assistant Medical
DX: R53.83 Other fatigue (principal)
CPT/HCPCS: 36415; 80053; 85025

== ENCOUNTER 2024-09-21 05:02 | Emergency (ER) | payer BC, SELFPAY ==
[2024-09-21] VITALS (8 sets, daily range): BP systolic 99–129; BP diastolic 61–80; PULSE 70–78
[2024-09-21 05:38] LABS: % Eosinophils 6.2 % (0-6); % Immature Granulocytes 0.7 % (0-0.5); % Lymphocytes 37.5 % (20.5-51.1); % Monocytes 5.5 % (1.7-9.3); % Neutrophils 49.1 % (42.2-75.2); Absolute Basophils 0.1 10^3/uL (0-0.2); Absolute Eosinophils 0.4 10^3/uL (0-0.7); Absolute Immature Granulocytes 0.1 10^3/uL (0-0.05); Absolute Lymphocytes 2.5 10^3/uL (1.2-3.4); Absolute Monocytes 0.4 10^3/uL (0.1-0.6); Absolute Neutrophils 3.3 10^3/uL (1.4-6.5); Hematocrit 27.1 % (37.0-47.0); Mean Corp Hgb Conc. 33.2 g/dL (33.0-37.0); Mean Corpuscular Hgb 29.9 pg (27.0-31.0); Nucleated Red Blood Cells % 0 %; Platelet Count 204 10^3/uL (130-400); Red Blood Cell Count 3.01 10^6/uL (4.20-5.40); Red Cell Dist. Width 13.1 % (11.5-14.5); White Blood Cell Count 6.8 10^3/uL (4.8-10.8)
[2024-09-21] MEDS: ZOFRAN 4 MG IV (06:42)
[2024-09-21 07:09] LABS: ALT (SGPT) 23 U/L (0-35); AST (SGOT) 27 U/L (14-36); Albumin 3.4 g/dl (3.5-5.0); Alkaline Phosphatase 86 U/L (38-126); Blood Urea Nitrogen 16 mg/dl (7-17); Calcium 8.8 mg/dl (8.4-10.2); Carbon Dioxide 28 mmol/L (22-30); Chloride 105 mmol/L (98-107); Glucose 126 mg/dl (70-99); Potassium 4.2 mmol/L (3.5-5.1); Sodium 138 mmol/L (135-145); Total Bilirubin 0.3 mg/dl (0.2-1.3); Total Protein 5.6 g/dl (6.3-8.2); eGFR > 60.00
[2024-09-21 07:28] LABS: Urine Albumin Negative (Neg - Trace); Urine Bilirubin Negative (Negative); Urine Character Clear (Clear); Urine Color Yellow; Urine Glucose Negative (Negative); Urine Ketone Negative (Negative); Urine Leukocyte Negative (Negative); Urine Nitrite Negative (Negative); Urine Occult Blood Negative (Negative); Urine Urobilinogen Negative (Neg - 1+)
[2024-09-21] MEDS: NSS 500 IV (07:57)
[2024-09-21 09:19] LABS: TSH 1.06 uIU/ml (0.47-4.68)
--- NOTE | 2024-09-21 09:33 | ED.GENMED ---
History of Present Illness
General
Chief Complaint: Fainting Sensation
Source: patient and spouse
Time Seen by Provider: 09/21/24 06:22
History of Present Illness
History of Present Illness:
59-year-old female who presents after she got up to the bathroom and felt extremely 'dizzy' and fell to the ground. She states she does not suspect she lost consciousness but her heard her fall. Patient states she just feels lightheaded.
She then became very weak and her could not get her up. On my evaluation she just complains of feeling dizzy which she describes as lightheadedness. There is room spinning dizziness. No motor weakness. No chest pain. No shortness of
breath. No palpitations. No melena. No hematochezia. EMS reported that she did vomit and looked dark. states he did not see blood. She has not been taking any NSAIDs or aspirin as per the patient's . The patient also has just
been feeling very fatigued over the last few weeks at the end of the day. No obvious etiology.
Past History
Past History
ED Past Medical History: Psychiatric (bipolar) and Other (Rectal prolapse)
Social History
Tobacco: Non-smoker
Personal:
Living: with family
Phy Exam
Physical Exam
Physical Exam:
CONSTITUTIONAL Patient alert and oriented to person, place and time. Well-appearing. Vital signs reviewed.
HEAD atraumatic, normocephalic.
EYES eyelids normal to inspection, Extraocular muscles intact, Conjunctiva normal, Sclera normal.
NECK normal range of motion, Trachea midline, no jugular venous distention.
RESPIRATORY CHEST No respiratory distress noted, Chest expansion equal, Bilateral breath sounds clear.
CARDIOVASCULAR regular rate and rhythm, Heart sounds normal.
ABDOMEN abdomen nontender, Bowel sounds normal. No distention.
Rectal exam, heme-negative
BACK normal inspection, no obvious deformities
UPPER EXTREMITY , Motor strength normal, no cyanosis, no edema. Does have tenderness noted to the AC joint on the left. No joint effusion noted
LOWER EXTREMITY range of motion normal, Motor strength normal, no cyanosis, no edema.
NEURO Speech normal, No focal motor deficits, Jennifer coma scale 15, Memory normal, Cranial Nerves intact to screening exam.
SKIN skin warm, dry, and normal in color.
Course
Orders/Labs/Results
Orders:
Orders
09/21/24 05:04
Electrocardiogram (*1) Urgent
Reason for Study: Syncope
09/21/24 05:05
EKG- Treatment ONCE
09/21/24 05:16
Type+Screen Urgent
Complete Blood Count/With Diff Urgent
09/21/24 06:35
Ondansetron Injectable [Zofran] 4 mg .ROUTE .[facility]
09/21/24 06:39
Ondansetron Injectable [Zofran] 4 mg IV NOW STA
09/21/24 06:42
Comprehensive Metabolic Panel Urgent
Comment: REDRAW
Lyme Progressive Urgent
Comment: ADD ON
TSH Urgent
Comment: ADD ON
09/21/24 07:04
Urinalysis Reflex To Culture Urgent
Date Specimen was Collected: 09/21/24
Time Specimen was Collected: 07:02
09/21/24 07:54
0.9% Sodium Chloride 500 ml [Nss] 500 ml IV BOLUS
09/21/24 08:08
Add On- LAB Urgent
Tests Added?: tsh
09/21/24 08:36
Shoulder, Left, Trauma CR [CR Shoulder, Trauma - Left] Urgent
Comment:
Reason For Exam: fall
09/21/24 08:40
Add On- LAB Urgent
Tests Added?: lyme progressive
09/21/24 09:32
Sling Left-Treatment ONCE
Abnormal Lab Results
09/21/24 09/21/24
05:16 06:42
RBC 3.01 L 10^6/uL
(4.20-5.40)
Hgb 9.0 L g/dL
(12.0-16.0)
Hct 27.1 L %
(37.0-47.0)
MPV 11.0 H fL
(7.4-10.4)
Abs Immat Gran (auto) 0.1 H 10^3/uL
(0-0.05)
Immature Gran % 0.7 H %
(0-0.5)
Eosinophils % 6.2 H %
(0-6)
Glucose 126 H mg/dl
(70-99)
Total Protein 5.6 L g/dl
(6.3-8.2)
Albumin 3.4 L g/dl
(3.5-5.0)
09/21/24 05:16
09/21/24 06:42
Vital Signs
Initial and Last Documented VS:
Initial Vital Signs
BP
129/80
09/21/24 05:08
Last Documented Vital Signs
Temp Pulse Resp BP Pulse Ox
97.2 F 67 12 101/61 100
09/21/24 05:10 09/21/24 08:15 09/21/24 08:15 09/21/24 08:00 09/21/24 08:15
MDM/Problems Addressed
MDM/Problems Addressed:
Clavicle fracture, near syncope, suspected vasovagal event, urinary retention
*Radiology
Radiology exam reviewed: preliminary read by ED provider (Clavicle fracture)
*Pulse Oximetry
Patient hypoxic: no
*EKG
Interpreted by ED Provider?: Yes
Interpretation: normal
Rate: normal
Rhythm: sinus
[place]: normal axis
QRS Pattern: normal QRS
Ischemia: no ischemia
*[place] Interpretation
Rate: normal
Interpretation: normal
Rhythm: sinus
*Critical Care Note
Total Time (30-74mins, 75-104mins- exclusive of procedures): Not Applicable
Data Reviewed
Review of Other/Old Records Reveals: Labs, Operative Reports and Discharge Summary (From June 2024)
Source: patient
Further Testing Considered But Not Given:
Consider CT but no overt head injury
Patient Management
Escalation/DeEscalation of care consider admission/obs:
Patient feels better. Given IV fluids. Rectal heme-negative. No further vomiting. No real risk for GI bleed. She does have a mild anemia that she has had over the last few checks. suspect vasovagal response as she was going to the bathroom and
full bladder. She continued to have a full bladder here in the emergency department and put out 900 cc of urine. On reassessment has been able to urinate normally. Does have a distal clavicle fracture. Sling applied. Patient is now ambulatory.
No chest pain. No suspicion for arrhythmia. She does have a normally low blood pressure and I suspect after getting out of bed in the middle of the night having to urinate her blood pressure dropped and she had a near syncopal event. I did
recommend close follow-up for her mild anemia. Results are similar to back in June.
ED Attending Note
-
Portions of this chart may have been created with voice recognition software.� Occasional wrong word or��sound alike� substitutions may have occurred due to the inherent limitations of voice recognition software.
Discharge Plan
Departure
Patient Disposition: Home (Routine Discharge)
Date of Disposition: 09/21/24
Time of Disposition: 09:38
Patient with high blood pressure during this ER visit?: No
Discharge Problem:
Near syncope, Clavicle fracture, Anemia
Instructions: Clavicle fracture, Near Fainting (DC)
Prescriptions:
No Action
lamotrigine 200 mg Tablet
600 mg PO HS
clonazepam 0.5 mg Tablet
0.5 mg PO TID
psyllium Packet
1 packet PO BID
naproxen 500 mg Tablet
500 mg PO BID
duloxetine 30 mg Capsule,Delayed Release(Dr/Ec)
90 mg PO DAILY
sodium chloride 0.9 % Aerosol,[place]
2 spray INTRANASAL BID
Caplyta 42 mg Capsule
42 mg PO HS
mometasone 50 mcg/actuation Hfa Aerosol Inhaler
50 mcg INHALATION HS
Rx Instructions:
2 sprays at bedtime
Florastor
1 tab PO BID
clonazepam 0.5 mg Tablet
0.5 mg PO DAILY PRN (Reason: anxiety)
Rx Instructions:
may take an additional 0.5mg po as needed, along with the TID dose.
oxycodone 5 mg tablet
5 mg PO Q4HPRN PRN (Reason: breakthrough/severe pain) Qty: 20 0RF
acetaminophen [acetaminophen] 325 mg tablet
650 mg PO Q4HPRN PRN (Reason: mild pain) Qty: 1 0RF
Referrals:
Stacey Ramos PA-C [Family Provider] -
Porfirio Ford MD [Active] -
Activity Restrictions/Additional Instructions:
Please see your doctor this week for follow-up and reevaluation. Please see orthopedics in the next 2 weeks for follow-up. Return immediately for bloody stools, black stools, vomiting, chest pain, shortness of breath, abdominal pain, back pain,
fevers or any other concerns.
Interventions
Interventions:
*Risk Screen - Suicide Last Done: 09/21/24 05:10
*General Assessment Last Done: 09/21/24 05:10
*Neglect/Abuse Screening Last Done: 09/21/24 05:10
*ED COVID-19 Vaccine History Last Done: 09/21/24 05:10
ED- Cardiac Assessment Last Done: 09/21/24 05:36
ED- Neurological Assessment Last Done: 09/21/24 05:36
Discharge Date and Time
Print Language: ALGERIAN
[2024-09-21 14:57] LABS: Lyme Antibody Screen, EIA Negative (Negative)
== END 2024-09-21 10:06 | disposition home or self-care (01) ==
LOC: EMR 05:02
PROVIDERS: Emergency Medicine; EMERGENCY PHYSICIAN Emergency Medicine; FAMILY PHYSICIAN Physician Assistant Medical
DX: R55 Syncope and collapse (principal); S42.032A Displaced fracture of lateral end of left clavicle, initial encounter for closed fracture; D64.9 Anemia, unspecified; W19.XXXA Unspecified fall, initial encounter; F31.9 Bipolar disorder, unspecified
CPT/HCPCS: 99283; 73030; 80053; 81003; 84443; 85025; 86618; 86850; 86900; 86901; 93005

== ENCOUNTER 2024-09-23 12:14 | Emergency (ER) | payer BC, SELFPAY ==
[2024-09-23 12:20] VITALS: BP 131/77
[2024-09-23 14:20] VITALS: BP 131/95
--- NOTE | 2024-09-23 14:23 | ED.GENMED ---
History of Present Illness
General
Chief Complaint: Head Injury
Source: patient
Exam Limitations: none
Time Seen by Provider: 09/23/24 14:01
Nursing documentation reviewed up to this point in time: agreed with
History of Present Illness
History of Present Illness:
pt is a 59 y/o F with h/o recent hysterectomy/bladder suspension and colon resection surgery 8 weeks ago
was here 2 days ago for room spinning dizziness whenshe stood up in the middle of the night and fell due to the dizziness
she did strike her head on the hardwood floor but had no LOC and at the time, no headache;
she was found to have some anemia but it was felt that her fall was due to orthostasis/vagal episode
she also had a distal clavicle fracture and was placed in a sling
she has continued to have headache and fatigue and was sleeping alot
she developed bruising to L forehead yesterday
and sometimes when she has been texting she has had a few times where it didn't make sense
family has been staying with her and felt that she should be checked out; called the pcp who recommended urgetn care but they sent her to [facility] for ct
Patient has not had any nausea or vomiting, significant amnesia or confusion, neck pain, weakness. She is no longer feeling dizzy or lightheaded. She does have a call out to hematology regarding her anemia for a workup. She is supposed to be
taking iron but does not because it makes her constipated
Past History
Past History
ED Past Medical History: Psychiatric (bipolar) and Other (Rectal prolapse)
Social History
Tobacco: Non-smoker
Personal:
Living: with family
Review of Systems
Review of Systems
Allergies reviewed?: Yes
All Other Systems: Not applicable
Phy Exam
Physical Exam
Physical Exam:
GENERAL: Alert , in no apparent distress
HEAD: Forehead bruising left approximately 5 cm x 4 cm, no soft tissue swelling, mildly tender to
EYE: pupils equal and reactive, no nystagmus, no photophobia
NECK: Supple,full rom, nontender
ENT: o/p clr, mmm.
CARDIAC: Regular rate and rhythm . no edema
LUNGS: Clear breath sounds bilaterally, no acute respiratory distress, no wheezes/rales/rhonchi
ABDOMEN: Soft, without focal tenderness, no r/g, no cvat
NEUROLOGICAL: Alert and orientedx 4, cn intact, no facial asymmetry, 5/5 strength in UE/LE, sensation intact, romberg neg, ambulates without assistance, neg pronator drift
SKIN: Warm and dry, skin intact.
MUSCULOSKELETAL: No edema, well perfused.
Left shoulder in a sling
PSYCH: Normal and appropriate interaction.
Course
Orders/Labs/Results
Orders:
Orders
09/23/24 12:[address] [CT Head W/o Iv Contrast] Urgent
Comment:
Reason For Exam: fall
Vital Signs
Initial and Last Documented VS:
Initial Vital Signs
Temp Pulse Resp BP Pulse Ox
98 F 60 16 131/77 100
09/23/24 12:20 09/23/24 12:20 09/23/24 12:20 09/23/24 12:20 09/23/24 12:20
Last Documented Vital Signs
Temp Pulse Resp BP Pulse Ox
97.6 F 63 20 150/85 100
09/23/24 14:20 09/23/24 16:52 09/23/24 16:52 09/23/24 16:52 09/23/24 16:52
MDM/Problems Addressed
Differential Diagnosis Includes:
concussion, SDH, constipaiton
MDM/Problems Addressed:
59 y/o F
here 2 days ago after dizziness causing a fall
did hit her head bu tno obvious LOC
was found to be anemic - needs to see hematology, doesn't like taking iron due to constipation issues
since the ED visit, has not had sifniicant dizziness but has had a headache and some fatigue and just feels off
no AC
on exa p thas a burise that developed afer her fall that was not visible on the day of the fall
L forehead
mild tendenress
neuro intact
no abdominal tendenress or significant distension
ct head was neg
d/c home
symptoms likely concussoin
brain rest 2 days
f/u with pcp
*Critical Care Note
Total Time (30-74mins, 75-104mins- exclusive of procedures): Not Applicable
ED Attending Note
-
Portions of this chart may have been created with voice recognition software.� Occasional wrong word or��sound alike� substitutions may have occurred due to the inherent limitations of voice recognition software.
Discharge Plan
Departure
Patient Disposition: Home (Routine Discharge)
Date of Disposition: 09/23/24
Time of Disposition: 15:00
Patient with high blood pressure during this ER visit?: No
Condition: Fair
Covid-19: Not Applicable
Discharge Problem:
Concussion
Instructions: Concussion, Adult (DC)
Prescriptions:
No Action
lamotrigine 200 mg Tablet
600 mg PO HS
clonazepam 0.5 mg Tablet
0.5 mg PO TID
psyllium Packet
1 packet PO BID
naproxen 500 mg Tablet
500 mg PO BID
duloxetine 30 mg Capsule,Delayed Release(Dr/Ec)
90 mg PO DAILY
sodium chloride 0.9 % Aerosol,[place]
2 spray INTRANASAL BID
Caplyta 42 mg Capsule
42 mg PO HS
mometasone 50 mcg/actuation Hfa Aerosol Inhaler
50 mcg INHALATION HS
Rx Instructions:
2 sprays at bedtime
Florastor
1 tab PO BID
clonazepam 0.5 mg Tablet
0.5 mg PO DAILY PRN (Reason: anxiety)
Rx Instructions:
may take an additional 0.5mg po as needed, along with the TID dose.
oxycodone 5 mg tablet
5 mg PO Q4HPRN PRN (Reason: breakthrough/severe pain) Qty: 20 0RF
acetaminophen [acetaminophen] 325 mg tablet
650 mg PO Q4HPRN PRN (Reason: mild pain) Qty: 1 0RF
Stand Alone Forms: Return to Work
Activity Restrictions/Additional Instructions:
you likely have a mild concussion
for this we recommend 24-48 hours of brain rest to help your brain heal and your headache improve.
also use tylenol every 6 hours as needed for headache
f
afte 48 hours, you can return to work
if you are getting headaches, you may need to be sent home. if you are still having headaches all week, you need to see a specialist - start with your [facility] doctor.
otherwise as long as you are well you can return to full activity
return to the er for: worsening pain, vomiting, confusion, weakness, numbness/tingling in arms or legs or any concerns.
make angel eto get your hematology appt made.
Interventions
Interventions:
*Risk Screen - Suicide Last Done: 09/23/24 12:20
*General Assessment Last Done: 09/23/24 12:20
*Neglect/Abuse Screening Last Done: 09/23/24 12:20
*Nursing Disposition Last Done: 09/23/24 16:52
ED- Neurological Assessment Last Done: 09/23/24 16:51
ED-Skin Assessment Last Done: 09/23/24 16:51
Discharge Date and Time
Discharge Date/Time: 09/23/24 15:20
Print Language: CHINESE
[2024-09-23 16:52] VITALS: BP 150/85
== END 2024-09-23 15:20 | disposition home or self-care (01) ==
LOC: EMR 12:14
PROVIDERS: EMERGENCY PHYSICIAN Emergency Medicine; FAMILY PHYSICIAN Physician Assistant Medical
DX: S06.0X0A Concussion without loss of consciousness, initial encounter (principal); S00.83XA Contusion of other part of head, initial encounter; R11.0 Nausea; W19.XXXA Unspecified fall, initial encounter; D64.9 Anemia, unspecified; F31.9 Bipolar disorder, unspecified; F41.9 Anxiety disorder, unspecified; F32.A Depression, unspecified; Z88.8 Allergy status to other drugs, medicaments and biological substances
CPT/HCPCS: 99284; 70450

== ENCOUNTER → 2024-10-07 11:23 | Outpatient (REF) | payer BC, SELFPAY ==
[2024-10-07 12:20] LABS: % Eosinophils 5.1 % (0-6); % Immature Granulocytes 0.3 % (0-0.5); % Lymphocytes 27.9 % (20.5-51.1); % Monocytes 6.8 % (1.7-9.3); % Neutrophils 58.9 % (42.2-75.2); Absolute Basophils 0.1 10^3/uL (0-0.2); Absolute Eosinophils 0.3 10^3/uL (0-0.7); Absolute Lymphocytes 1.7 10^3/uL (1.2-3.4); Absolute Monocytes 0.4 10^3/uL (0.1-0.6); Absolute Neutrophils 3.5 10^3/uL (1.4-6.5); Hematocrit 30.5 % (37.0-47.0); Hemoglobin 10.1 g/dL (12.0-16.0); Mean Corp Hgb Conc. 33.1 g/dL (33.0-37.0); Mean Corpuscular Hgb 30.3 pg (27.0-31.0); Mean Corpuscular Volume 91.6 fL (81.0-99.0); Mean Platelet Volume 10.8 fL (7.4-10.4); Nucleated Red Blood Cells % 0 %; Platelet Count 253 10^3/uL (130-400); Red Blood Cell Count 3.33 10^6/uL (4.20-5.40); Red Cell Dist. Width 13.3 % (11.5-14.5); Reticulocyte Count 0.9 % (0.4-2.8); White Blood Cell Count 5.9 10^3/uL (4.8-10.8)
[2024-10-07 12:34] LABS: Erythrocyte Sed Rate 22 mm/hour (0-20)
[2024-10-07 12:35] LABS: ALT (SGPT) 26 U/L (0-35); AST (SGOT) 30 U/L (14-36); Albumin 4.1 g/dl (3.5-5.0); Alkaline Phosphatase 79 U/L (38-126); Blood Urea Nitrogen 12 mg/dl (7-17); Calcium 9.9 mg/dl (8.4-10.2); Carbon Dioxide 28 mmol/L (22-30); Chloride 103 mmol/L (98-107); Glucose 87 mg/dl (70-99); Iron 46 ug/dl (37-170); LDH 208 U/L (120-246); Potassium 4.1 mmol/L (3.5-5.1); Sodium 138 mmol/L (135-145); Total Bilirubin 0.5 mg/dl (0.2-1.3); Total Protein 6.5 g/dl (6.3-8.2); eGFR > 60.00
[2024-10-07 12:44] LABS: Percent Saturation 13 % (20-50); Total Iron Binding Capacity 339 ug/dl (265-497)
[2024-10-07 13:09] LABS: Ferritin 11.1 ng/ml (11.1-264.0)
[2024-10-07 13:40] LABS: Folate 19.4 ng/ml (2.76-20); Vitamin B12 704 pg/ml (239-931)
[2024-10-09 23:02] LABS: Haptoglobin 87 mg/dL (30-200)
== END ==
LOC: REG 11:23
PROVIDERS: ATTENDING PHYSICIAN Nurse Practitioner Adult Health; FAMILY PHYSICIAN Physician Assistant Medical
DX: D64.9 Anemia, unspecified (principal)
CPT/HCPCS: 36415; 80053; 82607; 82728; 82746; 83010; 83540; 83550; 83615; 84155; 84165; 85025; 85045; 85652; 86880

== ENCOUNTER → 2024-10-09 17:12 | Outpatient (REF) | payer BC, SELFPAY | LOC: REG 17:12 | PROVIDERS: ATTENDING PHYSICIAN Nurse Practitioner Adult Health; FAMILY PHYSICIAN Physician Assistant Medical | DX: D64.9 Anemia, unspecified (principal) | CPT/HCPCS: 82272 ==

== ENCOUNTER 2024-10-24 07:46 | Outpatient (RCR) | payer BC, SELFPAY ==
[2024-10-17 08:39] VITALS: BP 121/78
[2024-10-17] MEDS: INJECTAFER 264 MG IV (08:53)
[2024-10-17 09:49] VITALS: BP 130/69
[2024-10-24 07:50] VITALS: BP 115/66
[2024-10-24] MEDS: INJECTAFER 264 MG IV (08:08)
[2024-10-24 08:18] LABS: % Basophils 0.7 % (0-2); % Eosinophils 3.5 % (0-6); % Immature Granulocytes 0.2 % (0-0.5); % Lymphocytes 30.1 % (20.5-51.1); % Monocytes 6.2 % (1.7-9.3); % Neutrophils 59.3 % (42.2-75.2); Absolute Eosinophils 0.2 10^3/uL (0-0.7); Absolute Lymphocytes 1.7 10^3/uL (1.2-3.4); Absolute Monocytes 0.4 10^3/uL (0.1-0.6); Absolute Neutrophils 3.4 10^3/uL (1.4-6.5); Hematocrit 31.5 % (37.0-47.0); Hemoglobin 10.3 g/dL (12.0-16.0); Mean Corp Hgb Conc. 32.7 g/dL (33.0-37.0); Mean Corpuscular Hgb 31.3 pg (27.0-31.0); Mean Corpuscular Volume 95.7 fL (81.0-99.0); Mean Platelet Volume 10.7 fL (7.4-10.4); Platelet Count 215 10^3/uL (130-400); Red Blood Cell Count 3.29 10^6/uL (4.20-5.40); Red Cell Dist. Width 13.9 % (11.5-14.5); White Blood Cell Count 5.7 10^3/uL (4.8-10.8)
[2024-10-24 08:45] VITALS: BP 132/63
[2024-10-24 08:45] LABS: Phosphorus 2.2 mg/dl (2.5-4.5)
== END 2024-10-25 09:18 | disposition home or self-care (01) ==
LOC: OID 07:46
PROVIDERS: ATTENDING PHYSICIAN Internal Medicine Hematology & Oncology; FAMILY PHYSICIAN Physician Assistant Medical
DX: D64.9 Anemia, unspecified (principal); D50.9 Iron deficiency anemia, unspecified; R53.83 Other fatigue
CPT/HCPCS: 84100; 85025; 96365; J1439

== ENCOUNTER → 2024-11-24 11:08 | Outpatient (REF) | payer BC, SELFPAY ==
[2024-11-24 12:52] LABS: % Basophils 0.4 % (0-2); % Eosinophils 0.9 % (0-6); % Immature Granulocytes 0.6 % (0-0.5); % Lymphocytes 12.6 % (20.5-51.1); % Monocytes 3.8 % (1.7-9.3); % Neutrophils 81.7 % (42.2-75.2); Absolute Basophils 0.1 10^3/uL (0-0.2); Absolute Eosinophils 0.1 10^3/uL (0-0.7); Absolute Immature Granulocytes 0.1 10^3/uL (0-0.05); Absolute Lymphocytes 1.8 10^3/uL (1.2-3.4); Absolute Monocytes 0.5 10^3/uL (0.1-0.6); Absolute Neutrophils 11.6 10^3/uL (1.4-6.5); Hematocrit 34.4 % (37.0-47.0); Hemoglobin 11.4 g/dL (12.0-16.0); Mean Corp Hgb Conc. 33.1 g/dL (33.0-37.0); Mean Corpuscular Volume 96.6 fL (81.0-99.0); Mean Platelet Volume 11.6 fL (7.4-10.4); Nucleated Red Blood Cells % 0 %; Platelet Count 182 10^3/uL (130-400); Red Blood Cell Count 3.56 10^6/uL (4.20-5.40); Red Cell Dist. Width 15.1 % (11.5-14.5); White Blood Cell Count 14.2 10^3/uL (4.8-10.8)
[2024-11-24 14:48] LABS: Iron 29 ug/dl (37-170)
[2024-11-24 14:57] LABS: Percent Saturation 12 % (20-50); Total Iron Binding Capacity 228 ug/dl (265-497)
== END ==
LOC: REG 11:08
PROVIDERS: ATTENDING PHYSICIAN Nurse Practitioner Adult Health; FAMILY PHYSICIAN Physician Assistant Medical
DX: D64.9 Anemia, unspecified (principal); D50.9 Iron deficiency anemia, unspecified
CPT/HCPCS: 36415; 82728; 83540; 83550; 85025

== ENCOUNTER 2024-12-25 16:53 | Outpatient (RCR) | payer BC, SELFPAY | END 2024-12-25 23:59 | disposition home or self-care (01) | LOC: RPT 16:53 | PROVIDERS: ATTENDING PHYSICIAN Physician Assistant; FAMILY PHYSICIAN Physician Assistant Medical | DX: S42.032D Displaced fracture of lateral end of left clavicle, subsequent encounter for fracture with routine healing (principal); Z73.6 Limitation of activities due to disability; M62.81 Muscle weakness (generalized); W19.XXXD Unspecified fall, subsequent encounter | CPT/HCPCS: 97010; 97110; 97112; 97140; 97162 ==

== ENCOUNTER → 2025-01-05 07:44 | Outpatient (REF) | payer BC, SELFPAY ==
[2025-01-05 09:03] LABS: % Basophils 0.8 % (0-2); % Eosinophils 3.1 % (0-6); % Immature Granulocytes 0.2 % (0-0.5); % Lymphocytes 32.9 % (20.5-51.1); Absolute Eosinophils 0.2 10^3/uL (0-0.7); Absolute Lymphocytes 1.6 10^3/uL (1.2-3.4); Absolute Monocytes 0.3 10^3/uL (0.1-0.6); Absolute Neutrophils 2.7 10^3/uL (1.4-6.5); Hematocrit 39.2 % (37.0-47.0); Hemoglobin 12.9 g/dL (12.0-16.0); Mean Corp Hgb Conc. 32.9 g/dL (33.0-37.0); Mean Corpuscular Hgb 32.1 pg (27.0-31.0); Mean Corpuscular Volume 97.5 fL (81.0-99.0); Mean Platelet Volume 11.5 fL (7.4-10.4); Nucleated Red Blood Cells % 0 %; Platelet Count 173 10^3/uL (130-400); Red Blood Cell Count 4.02 10^6/uL (4.20-5.40); Red Cell Dist. Width 12.9 % (11.5-14.5); Reticulocyte Count 0.6 % (0.4-2.8); White Blood Cell Count 4.9 10^3/uL (4.8-10.8)
[2025-01-05 09:15] LABS: Erythrocyte Sed Rate 11 mm/hour (0-20)
[2025-01-05 09:59] LABS: ALT (SGPT) 45 U/L (0-35); AST (SGOT) 36 U/L (14-36); Albumin 4.6 g/dl (3.5-5.0); Alkaline Phosphatase 97 U/L (38-126); Blood Urea Nitrogen 16 mg/dl (7-17); Calcium 9.9 mg/dl (8.4-10.2); Carbon Dioxide 29 mmol/L (22-30); Chloride 101 mmol/L (98-107); Glucose 76 mg/dl (70-99); HDL Cholesterol 90 mg/dl; Iron 123 ug/dl (37-170); LDL Cholesterol, Calculated 150 mg/dl; Potassium 5.1 mmol/L (3.5-5.1); Sodium 137 mmol/L (135-145); Total Bilirubin 0.9 mg/dl (0.2-1.3); Total Cholesterol 258 mg/dl (50-199); Total Protein 6.8 g/dl (6.3-8.2); Triglyceride 91 mg/dl (10-149); Very Low Density Lipoprotein 18 mg/dl (0-30); eGFR > 60.00
[2025-01-05 10:09] LABS: Percent Saturation 54 % (20-50); Total Iron Binding Capacity 226 ug/dl (265-497)
[2025-01-05 10:30] LABS: TSH Reflex To Free T4 1.71 uIU/ml (0.47-4.68)
== END ==
LOC: REG 07:44
PROVIDERS: ATTENDING PHYSICIAN Physician Assistant Medical; FAMILY PHYSICIAN Internal Medicine Hematology & Oncology
DX: D64.9 Anemia, unspecified (principal); D50.9 Iron deficiency anemia, unspecified; Z00.00 Encounter for general adult medical examination without abnormal findings; J30.2 Other seasonal allergic rhinitis; F31.9 Bipolar disorder, unspecified; F32.9 Major depressive disorder, single episode, unspecified; F41.9 Anxiety disorder, unspecified; Z13.220 Encounter for screening for lipoid disorders
CPT/HCPCS: 80053; 80061; 82728; 83540; 83550; 84443; 85025; 85045; 85652

== ENCOUNTER 2025-01-22 17:05 | Outpatient (RCR) | payer BC, SELFPAY | END 2025-01-23 07:38 | disposition home or self-care (01) | LOC: RPT 17:05 | PROVIDERS: ATTENDING PHYSICIAN Physician Assistant; FAMILY PHYSICIAN Physician Assistant Medical | DX: S42.032D Displaced fracture of lateral end of left clavicle, subsequent encounter for fracture with routine healing (principal); Z73.6 Limitation of activities due to disability; M62.81 Muscle weakness (generalized); W19.XXXD Unspecified fall, subsequent encounter; Z87.820 Personal history of traumatic brain injury | CPT/HCPCS: 97010; 97110; 97112; 97140 ==

== ENCOUNTER → 2025-02-19 16:55 | Outpatient (REF) | payer BC, SELFPAY ==
[2025-02-19 17:19] LABS: % Basophils 0.7 % (0-2); % Eosinophils 1.9 % (0-6); % Immature Granulocytes 0.2 % (0-0.5); % Lymphocytes 29.2 % (20.5-51.1); % Monocytes 6.7 % (1.7-9.3); % Neutrophils 61.3 % (42.2-75.2); Absolute Eosinophils 0.1 10^3/uL (0-0.7); Absolute Lymphocytes 1.7 10^3/uL (1.2-3.4); Absolute Monocytes 0.4 10^3/uL (0.1-0.6); Absolute Neutrophils 3.6 10^3/uL (1.4-6.5); Hematocrit 35.1 % (37.0-47.0); Hemoglobin 11.8 g/dL (12.0-16.0); Mean Corp Hgb Conc. 33.6 g/dL (33.0-37.0); Mean Corpuscular Hgb 33.1 pg (27.0-31.0); Mean Corpuscular Volume 98.3 fL (81.0-99.0); Mean Platelet Volume 11.2 fL (7.4-10.4); Nucleated Red Blood Cells % 0 %; Platelet Count 166 10^3/uL (130-400); Red Blood Cell Count 3.57 10^6/uL (4.20-5.40); Red Cell Dist. Width 11.5 % (11.5-14.5); White Blood Cell Count 5.8 10^3/uL (4.8-10.8)
[2025-02-19 17:33] LABS: Iron 68 ug/dl (37-170)
[2025-02-19 17:42] LABS: Percent Saturation 29 % (20-50); Total Iron Binding Capacity 230 ug/dl (265-497)
== END ==
LOC: REG 16:55
PROVIDERS: ATTENDING PHYSICIAN Internal Medicine Hematology & Oncology; FAMILY PHYSICIAN Physician Assistant Medical
DX: D64.9 Anemia, unspecified (principal); D50.9 Iron deficiency anemia, unspecified
CPT/HCPCS: 36415; 82728; 83540; 83550; 85025

== ENCOUNTER → 2025-02-28 16:56 | Outpatient (REF) | payer BC, SELFPAY ==
[2025-02-28 17:46] LABS: % Basophils 0.6 % (0-2); % Eosinophils 2.5 % (0-6); % Immature Granulocytes 0.2 % (0-0.5); % Lymphocytes 31.7 % (20.5-51.1); % Monocytes 6.9 % (1.7-9.3); % Neutrophils 58.1 % (42.2-75.2); Absolute Eosinophils 0.2 10^3/uL (0-0.7); Absolute Monocytes 0.4 10^3/uL (0.1-0.6); Absolute Neutrophils 3.7 10^3/uL (1.4-6.5); Hematocrit 35.2 % (37.0-47.0); Hemoglobin 11.8 g/dL (12.0-16.0); Mean Corp Hgb Conc. 33.5 g/dL (33.0-37.0); Mean Corpuscular Hgb 33.3 pg (27.0-31.0); Mean Corpuscular Volume 99.4 fL (81.0-99.0); Mean Platelet Volume 11.6 fL (7.4-10.4); Nucleated Red Blood Cells % 0 %; Platelet Count 159 10^3/uL (130-400); Red Blood Cell Count 3.54 10^6/uL (4.20-5.40); Red Cell Dist. Width 11.7 % (11.5-14.5); Reticulocyte Count 1.1 % (0.4-2.8); White Blood Cell Count 6.3 10^3/uL (4.8-10.8)
[2025-02-28 17:54] LABS: Erythrocyte Sed Rate 5 mm/hour (0-20)
[2025-02-28 17:57] LABS: ALT (SGPT) 33 U/L (0-35); AST (SGOT) 32 U/L (14-36); Albumin 4.2 g/dl (3.5-5.0); Alkaline Phosphatase 82 U/L (38-126); Blood Urea Nitrogen 16 mg/dl (7-17); Calcium 9.7 mg/dl (8.4-10.2); Carbon Dioxide 30 mmol/L (22-30); Chloride 103 mmol/L (98-107); Glucose 94 mg/dl (70-99); LDH 210 U/L (120-246); Potassium 4.5 mmol/L (3.5-5.1); Sodium 139 mmol/L (135-145); Total Bilirubin 0.7 mg/dl (0.2-1.3); Total Protein 6.4 g/dl (6.3-8.2); eGFR > 60.00
[2025-02-28 18:28] LABS: TSH Reflex To Free T4 1.61 uIU/ml (0.47-4.68)
[2025-02-28 19:04] LABS: Folate > 20.0 ng/ml (2.76-20); Vitamin B12 583 pg/ml (239-931)
[2025-03-03 05:06] LABS: Haptoglobin 41 mg/dL (30-200)
== END ==
LOC: REG 16:56
PROVIDERS: ATTENDING PHYSICIAN Nurse Practitioner Adult Health; FAMILY PHYSICIAN Physician Assistant Medical
DX: D64.9 Anemia, unspecified (principal); D50.9 Iron deficiency anemia, unspecified
CPT/HCPCS: 36415; 80053; 82607; 82746; 83010; 83615; 84443; 85025; 85045; 85652; 86880

== ENCOUNTER → 2025-03-02 13:05 | Outpatient (REF) | payer BC, SELFPAY | LOC: REG 13:05 | PROVIDERS: ATTENDING PHYSICIAN Nurse Practitioner Adult Health | DX: D64.9 Anemia, unspecified (principal); D50.9 Iron deficiency anemia, unspecified | CPT/HCPCS: 82272 ==

== ENCOUNTER → 2025-03-31 10:01 | Outpatient (REF) | payer BC, SELFPAY ==
[2025-03-31 10:50] LABS: % Basophils 0.3 % (0-2); % Eosinophils 0.3 % (0-6); % Immature Granulocytes 0.3 % (0-0.5); % Lymphocytes 30.7 % (20.5-51.1); % Monocytes 6.2 % (1.7-9.3); % Neutrophils 62.2 % (42.2-75.2); Absolute Lymphocytes 2.4 10^3/uL (1.2-3.4); Absolute Monocytes 0.5 10^3/uL (0.1-0.6); Absolute Neutrophils 4.9 10^3/uL (1.4-6.5); Hematocrit 34.8 % (37.0-47.0); Hemoglobin 12.2 g/dL (12.0-16.0); Mean Corp Hgb Conc. 35.1 g/dL (33.0-37.0); Mean Corpuscular Hgb 33.8 pg (27.0-31.0); Mean Corpuscular Volume 96.4 fL (81.0-99.0); Mean Platelet Volume 11.4 fL (7.4-10.4); Nucleated Red Blood Cells % 0 %; Platelet Count 153 10^3/uL (130-400); Red Blood Cell Count 3.61 10^6/uL (4.20-5.40); Red Cell Dist. Width 11.2 % (11.5-14.5); White Blood Cell Count 7.9 10^3/uL (4.8-10.8)
[2025-03-31 11:12] LABS: ALT (SGPT) 30 U/L (0-35); AST (SGOT) 32 U/L (14-36); Albumin 4.3 g/dl (3.5-5.0); Alkaline Phosphatase 65 U/L (38-126); Blood Urea Nitrogen 12 mg/dl (7-17); Calcium 9.9 mg/dl (8.4-10.2); Carbon Dioxide 29 mmol/L (22-30); Chloride 96 mmol/L (98-107); Glucose 106 mg/dl (70-99); Potassium 3.3 mmol/L (3.5-5.1); Sodium 134 mmol/L (135-145); Total Bilirubin 0.9 mg/dl (0.2-1.3); Total Protein 6.5 g/dl (6.3-8.2); eGFR > 60.00
[2025-04-02 12:53] LABS: Lyme Antibody Screen, EIA Negative (Negative)
== END ==
LOC: REG 10:01
PROVIDERS: ATTENDING PHYSICIAN Physician Assistant Medical
DX: R42 Dizziness and giddiness (principal)
CPT/HCPCS: 36415; 80053; 84443; 85025; 86618

== ENCOUNTER → 2025-04-04 17:10 | Outpatient (REF) | payer BC, SELFPAY | LOC: RAD 17:10 | PROVIDERS: ATTENDING PHYSICIAN Physician Assistant Medical | DX: S09.90XA Unspecified injury of head, initial encounter (principal); S06.0X0A Concussion without loss of consciousness, initial encounter | CPT/HCPCS: 70450 ==

== ENCOUNTER → 2025-05-08 16:41 | Outpatient (REF) | payer BC, SELFPAY ==
[2025-05-08 17:33] LABS: % Basophils 0.4 % (0-2); % Immature Granulocytes 0.1 % (0-0.5); % Lymphocytes 29.9 % (20.5-51.1); % Monocytes 6.7 % (1.7-9.3); % Neutrophils 60.9 % (42.2-75.2); Absolute Eosinophils 0.1 10^3/uL (0-0.7); Absolute Lymphocytes 2.1 10^3/uL (1.2-3.4); Absolute Monocytes 0.5 10^3/uL (0.1-0.6); Absolute Neutrophils 4.4 10^3/uL (1.4-6.5); Hematocrit 34.1 % (37.0-47.0); Hemoglobin 11.3 g/dL (12.0-16.0); Mean Corp Hgb Conc. 33.1 g/dL (33.0-37.0); Mean Corpuscular Hgb 33.4 pg (27.0-31.0); Mean Corpuscular Volume 100.9 fL (81.0-99.0); Mean Platelet Volume 11.8 fL (7.4-10.4); Nucleated Red Blood Cells % 0 %; Platelet Count 150 10^3/uL (130-400); Red Blood Cell Count 3.38 10^6/uL (4.20-5.40); Red Cell Dist. Width 11.3 % (11.5-14.5); White Blood Cell Count 7.2 10^3/uL (4.8-10.8)
[2025-05-08 17:48] LABS: Iron 67 ug/dl (37-170)
[2025-05-08 17:57] LABS: Percent Saturation 26 % (20-50); Total Iron Binding Capacity 251 ug/dl (265-497)
== END ==
LOC: REG 16:41
PROVIDERS: ATTENDING PHYSICIAN Internal Medicine Hematology & Oncology; FAMILY PHYSICIAN Physician Assistant Medical
DX: D64.9 Anemia, unspecified (principal); D50.9 Iron deficiency anemia, unspecified
CPT/HCPCS: 36415; 82728; 83540; 83550; 85025

== ENCOUNTER → 2025-06-07 07:44 | Outpatient (REF) | payer BC, SELFPAY ==
[2025-06-07 10:27] LABS: ALT (SGPT) 28 U/L (0-35); AST (SGOT) 31 U/L (14-36); Albumin 4.7 g/dl (3.5-5.0); Alkaline Phosphatase 78 U/L (38-126); Blood Urea Nitrogen 15 mg/dl (7-17); Calcium 9.6 mg/dl (8.4-10.2); Carbon Dioxide 29 mmol/L (22-30); Chloride 105 mmol/L (98-107); Glucose 90 mg/dl (70-99); HDL Cholesterol 89 mg/dl; LDL Cholesterol, Calculated 88 mg/dl; Potassium 4.4 mmol/L (3.5-5.1); Sodium 141 mmol/L (135-145); Total Protein 7.0 g/dl (6.3-8.2); Very Low Density Lipoprotein 12 mg/dl (0-30); eGFR > 60.00
== END ==
LOC: REG 07:44
PROVIDERS: ATTENDING PHYSICIAN Physician Assistant Medical
DX: E78.2 Mixed hyperlipidemia (principal); R89.9 Unspecified abnormal finding in specimens from other organs, systems and tissues; E86.0 Dehydration
CPT/HCPCS: 36415; 80053; 80061

== ENCOUNTER → 2025-06-22 17:07 | Outpatient (REF) | payer BC, SELFPAY ==
[2025-06-22 17:41] LABS: Hematocrit 37.4 % (37.0-47.0); Hemoglobin 12.4 g/dL (12.0-16.0); Mean Corp Hgb Conc. 33.2 g/dL (33.0-37.0); Mean Corpuscular Volume 99.7 fL (81.0-99.0); Nucleated Red Blood Cells % 0 %; Platelet Count 150 10^3/uL (130-400); Red Cell Dist. Width 11.4 % (11.5-14.5)
[2025-06-22 17:58] LABS: Iron 73 ug/dl (37-170)
[2025-06-22 18:08] LABS: Total Iron Binding Capacity 259 ug/dl (265-497)
[2025-06-22 18:36] LABS: Ferritin 130.0 ng/ml (11.1-264.0)
== END ==
LOC: REG 17:07
PROVIDERS: ATTENDING PHYSICIAN Internal Medicine Hematology & Oncology; FAMILY PHYSICIAN Physician Assistant Medical
DX: D64.9 Anemia, unspecified (principal); D50.9 Iron deficiency anemia, unspecified
CPT/HCPCS: 36415; 82728; 83540; 83550; 85025

== ENCOUNTER 2025-09-17 10:27 | Emergency (ER) | payer BC, SELFPAY ==
[2025-09-17 10:30] VITALS: BP 124/79
[2025-09-17 11:22] VITALS: BMI 19.5
--- NOTE | 2025-09-17 11:32 | ED.GENMED ---
History of Present Illness
General
Chief Complaint: Head Injury
Source: patient and spouse
Exam Limitations: none
Time Seen by Provider: 09/17/25 11:10
Nursing documentation reviewed up to this point in time: agreed with
History of Present Illness
History of Present Illness:
60-year-old female presenting to the emergency department today after hitting her right forehead on a [place] countertop a few weeks ago has had some ongoing pain difficulty with balance since then. She spoke with her primary care doctor today that
recommended going to the ER. Denies any numbness weakness neck pain nausea vomiting. Does have a headache most days since.
Past History
Past History
ED Past Medical History: Psychiatric (bipolar) and Other (Rectal prolapse)
Social History
Tobacco: Non-smoker
Personal:
Living: with family
Review of Systems
Review of Systems
Allergies reviewed?: Yes
All Other Systems: ROS reviewed and negative except as documented in HPI and ROS
Phy Exam
Physical Exam
Physical Exam:
GENERAL: Alert , in no apparent distress
EYE: pupils equal and reactive
NECK: Supple, no significant adenopathy.
ENT: o/p clr, mmm.
CARDIAC: Regular rate and rhythm .
LUNGS: Clear breath sounds bilaterally, no acute respiratory distress, no wheezes/rales/rhonchi
ABDOMEN: Soft, without focal tenderness, no r/g, no cvat
NEUROLOGICAL: Alert and oriented, no focal neuro deficits
SKIN: Warm and dry, skin intact.
MUSCULOSKELETAL: No edema, well perfused.
PSYCH: Normal and appropriate interaction.
Course
Orders/Labs/Results
Orders:
Orders
09/17/25 11:19
CT Head W/o Iv Contrast Urgent
Comment:
Reason For Exam: right forehae dtrauma
Vital Signs
Initial and Last Documented VS:
Initial Vital Signs
Temp Pulse Resp BP Pulse Ox
98.2 F 71 18 124/79 100
09/17/25 10:30 09/17/25 10:30 09/17/25 10:30 09/17/25 10:30 09/17/25 10:30
Last Documented Vital Signs
Temp Pulse Resp BP Pulse Ox
98.2 F 71 18 124/79 100
09/17/25 10:30 09/17/25 10:30 09/17/25 10:30 09/17/25 10:30 09/17/25 11:33
MDM/Problems Addressed
MDM/Problems Addressed:
60-year-old female presenting to the emergency department today with concerns of head trauma from a few weeks ago. Ongoing vague symptoms. Plan for CT scan for further assessment. CT without evidence of emergent traumatic injury. Patient vies
for close outpatient follow-up. Return precautions given.
*Pulse Oximetry
SaO2: 100
Oxygen Mode of Delivery: Room air
Patient hypoxic: no (100)
*Critical Care Note
Total Time (30-74mins, 75-104mins- exclusive of procedures): Not Applicable
ED Attending Note
-
Portions of this chart may have been created with voice recognition software.� Occasional wrong word or��sound alike� substitutions may have occurred due to the inherent limitations of voice recognition software.
Discharge Plan
Departure
Patient Disposition: Home (Routine Discharge)
Date of Disposition: 09/17/25
Time of Disposition: 12:40
Patient with high blood pressure during this ER visit?: No
Condition: Good
Covid-19: Not Applicable
Discharge Problem:
Contusion of head
Instructions: Concussion, Adult (DC)
Prescriptions:
No Action
lamotrigine 200 mg Tablet
600 mg PO HS
clonazepam 0.5 mg Tablet
0.5 mg PO TID
psyllium Packet
1 packet PO BID
duloxetine 30 mg Capsule,Delayed Release(Dr/Ec)
90 mg PO DAILY
sodium chloride 0.9 % Aerosol,[place]
2 spray INTRANASAL BID
Caplyta 42 mg Capsule
42 mg PO HS
mometasone 50 mcg/actuation Hfa Aerosol Inhaler
50 mcg INHALATION HS
Rx Instructions:
2 sprays at bedtime
Florastor
1 tab PO BID
clonazepam 0.5 mg Tablet
0.5 mg PO DAILY PRN (Reason: anxiety)
Rx Instructions:
may take an additional 0.5mg po as needed, along with the TID dose.
acetaminophen [acetaminophen] 325 mg tablet
650 mg PO Q4HPRN PRN (Reason: mild pain) Qty: 1 0RF
Referrals:
Eduardo Muñiz MD [Active, Neurology] - Follow up in 5-7 days
Stacey Ramos PA-C [Family Provider, Family Practice]
Activity Restrictions/Additional Instructions:
You came to the emergency department today after a head injury from a few weeks ago. Here you have a reassuring CT scan and examination. Please follow closely as an outpatient. Return for any worsening, new or concerning symptoms.
Interventions
Interventions:
*Risk Screen - Suicide Last Done: 09/17/25 10:30
*General Assessment Last Done: 09/17/25 10:30
*Neglect/Abuse Screening Last Done: 09/17/25 11:33
*ED- Fall Risk Assessment Last Done: 09/17/25 11:33
*ED COVID-19 Vaccine History Last Done: 09/17/25 11:33
*ED Influenza Vaccine History Last Done: 09/17/25 11:33
ED- Neurological Assessment Last Done: 09/17/25 11:22
ED-Skin Assessment Last Done: 09/17/25 11:22
Discharge Date and Time
Print Language: MAORI
== END 2025-09-17 12:44 | disposition home or self-care (01) ==
LOC: EMR 10:27
PROVIDERS: EMERGENCY PHYSICIAN Emergency Medicine; FAMILY PHYSICIAN Physician Assistant Medical
DX: S00.83XA Contusion of other part of head, initial encounter (principal); W22.09XA Striking against other stationary object, initial encounter; Y92.000 Kitchen of unspecified non-institutional (private) residence as the place of occurrence of the external cause; F31.9 Bipolar disorder, unspecified
CPT/HCPCS: 99284; 70450

== ENCOUNTER → 2025-09-18 17:08 | Outpatient (REF) | payer BC, SELFPAY ==
[2025-09-18 17:50] LABS: Hematocrit 36.1 % (37.0-47.0); Hemoglobin 12.1 g/dL (12.0-16.0); Mean Corp Hgb Conc. 33.5 g/dL (33.0-37.0); Mean Corpuscular Volume 96.3 fL (81.0-99.0); Nucleated Red Blood Cells % 0 %; Platelet Count 160 10^3/uL (130-400); Red Cell Dist. Width 11.2 % (11.5-14.5)
[2025-09-18 18:09] LABS: Iron 60 ug/dl (37-170)
[2025-09-18 18:18] LABS: Total Iron Binding Capacity 253 ug/dl (265-497)
[2025-09-18 18:46] LABS: Ferritin 139.0 ng/ml (11.1-264.0)
== END ==
LOC: REG 17:08
PROVIDERS: ATTENDING PHYSICIAN Internal Medicine Hematology & Oncology; FAMILY PHYSICIAN Physician Assistant Medical
DX: D64.9 Anemia, unspecified (principal); D50.9 Iron deficiency anemia, unspecified
CPT/HCPCS: 36415; 82728; 83540; 83550; 85025

== ENCOUNTER 2025-11-07 13:18 | Observation (INO) | payer BC, SELFPAY ==
[2025-11-07] VITALS (20 sets, daily range): BP systolic 103–131; BP diastolic 61–84; BMI 19.0
[2025-11-07 08:42] LABS: Glucose - Point of Care 175 mg/dl (70-99)
--- NOTE | 2025-11-07 08:43 | ED.GENMED ---
History of Present Illness
General
Chief Complaint: Overdose Unintentional
Source: patient
Time Seen by Provider: 11/07/25 08:32
History of Present Illness
History of Present Illness:
60-year-old female brought to the emergency room by ambulance after evidently taking additional dose of Lamictal and Caplyta. Patient is currently too sedated to provide any history. Evidently she took her dose last night and took it again this
morning.
Further history obtained from patient's . Patient actually called him after inadvertently taking the extra dose of medicine this morning. She sounded fine. She actually decided to go to work. While driving to work she began to feel unwell
and called her again explaining the situation. She also called poison control who recommended she come to the emergency room. She got to the point where she not feel safe driving so called 911. Patient's has no suspicion for
intentional overdose or suicide attempt.
Past History
Past History
ED Past Medical History: Psychiatric (bipolar) and Other (Rectal prolapse)
Social History
Tobacco: Non-smoker
Personal:
Living: with family
Phy Exam
Physical Exam
Physical Exam:
General: Sleeping, responds to somewhat painful stimulation such as a sternal rub. She is protecting her airway.
Vitals: unremarkable
Head: Atraumatic
Eyes: Pupils equal, EOMI
Throat: Airway intact, no exudates
Neck: Trachea midline
Lungs: Clear and equal b/l
Heart: Regular rate, no murmurs
Abd: Soft, Nontender, No pulsatile mass
Neuro: Grossly nonfocal
Skin: Warm, dry, no rash
Extremities: pulses equal b/l, no edema
Course
Orders/Labs/Results
Orders:
Orders
11/07/25 08:38
EKG [Electrocardiogram (*1)] Urgent
Reason for Study: Fatigue / Weakness
11/07/25 08:39
EKG- Treatment ONCE
11/07/25 08:41
Cardiac Monitoring- Treatment ONCE
0.9% Sodium Chloride 1000 ml [Nss] 1,000 ml IV BOLUS
11/07/25 08:42
CT Head W/o Iv Contrast Urgent
Comment:
Reason For Exam: altered mental status
11/07/25 08:43
Acetaminophen Urgent
Alcohol Urgent
Complete Blood Count/With Diff Urgent
Comprehensive Metabolic Panel Urgent
Salicylate Urgent
11/07/25 08:52
Urinalysis Reflex To Culture Urgent
Date Specimen was Collected: 11/07/25
Time Specimen was Collected: 08:51
Urine Drug Abuse Screen Urgent
Date Specimen was Collected: 11/07/25
Time Specimen was Collected: 08:51
11/07/25 12:04
PSYCHIATRY CONSULT Routine
Consulting Provider: Maureen Thurston
Was physician already notified: Yes
Reason for consult: Accidental Overdose
11/07/25 13:04
Admit/Transfer Patient As Directed
Co-Sign Provider:
Level of Care: Observation services
Assign to:: Medical/Surgical
Physician / Group: Hospitalist
Diagnosis: Accidental Overdose
Expected length of stay greater than two midnights?: No
ELOS- Estimated Length of Stay in days: 2
I certify the patient meets the requirements for IP care: Yes
PRN Pain Medication Management As Directed
May give lesser potent ordered pain med per pt: Yes
preference::
Protocol:: Medication orders for pain may be administered in a
manner that supports deferring to patient preference
when the pt is:
- Requesting an ordered lesser potent pain medication.
Least to most potent pain medications are defined
as: acetaminophen < NSAID < tramadol < opioids
(morphine, oxycodone, hydromorphone).
- Requesting a lesser dose of the same medication IF
ORDERED.
- Requesting a less intrusive route of administration
if both routes are prescribed by the provider (PO <
IV).
11/07/25 13:06
Code Status As Directed
Resuscitation Status: Full Code
Abnormal Lab Results
11/07/25 11/07/25 11/07/25
08:40 08:43 08:52
WBC 4.5 L 10^3/uL
(4.8-10.8)
RBC 3.43 L 10^6/uL
(4.20-5.40)
Hgb 10.9 L g/dL
(12.0-16.0)
Hct 32.9 L %
(37.0-47.0)
MCH 31.8 H pg
(27.0-31.0)
MPV 11.1 H fL
(7.4-10.4)
Abs Immat Gran (auto) 0.1 H 10^3/uL
(0-0.05)
Immature Gran % 2.0 H %
(0-0.5)
Sodium 131 L mmol/L
(135-145)
Potassium 3.4 L mmol/L
(3.5-5.1)
Glucose 168 H mg/dl
(70-99)
Total Protein 6.0 L g/dl
(6.3-8.2)
Urine Glucose 1+ A
(Negative)
Salicylates < 1.0 L mg/dl
(2.0-20.0)
Acetaminophen < 10 L ug/ml
(10-30)
POC Glucose 175 H mg/dl
(70-99)
11/07/25 08:43
11/07/25 08:43
Vital Signs
Initial and Last Documented VS:
Initial Vital Signs
BP
126/74
11/07/25 08:27
Last Documented Vital Signs
Temp Pulse Resp BP Pulse Ox
96.1 F L 79 15 114/69 99
11/07/25 08:32 11/07/25 14:00 11/07/25 09:30 11/07/25 09:30 11/07/25 14:13
MDM/Problems Addressed
Differential Diagnosis Includes:
Polypharmacy overdose, acetaminophen overdose, alcohol intoxication
MDM/Problems Addressed:
Patient presents quite somnolent after accidental overdose of Lamictal and Caplyta. Patient observed for 3 hours and continues to be quite somnolent. She will require hospitalization for further period of observation and supportive care until she
metabolizes these medications. Did discuss the patient's presentation with poison control. They recommend monitoring for airway protection and QTc prolongation. Patient has a normal QTc on her EKG.
*Radiology
Radiology exam reviewed: radiology read reviewed
*Pulse Oximetry
SaO2: 98
Oxygen Mode of Delivery: Room air
Patient hypoxic: no
*EKG
Interpreted by ED Provider?: Yes
Heart Rate: 81
Rate: normal
Rhythm: sinus
[place]: normal axis
Interval: first degree heart block
QRS Pattern: normal QRS
Ischemia: no ischemia
*Entry Level Automotive Technician Interpretation
Rate: normal
Interpretation: normal
Heart Rate: 81
Rhythm: sinus
*Critical Care Note
Total Time (30-74mins, 75-104mins- exclusive of procedures): Not Applicable
ED Attending Note
-
Portions of this chart may have been created with voice recognition software.� Occasional wrong word or��sound alike� substitutions may have occurred due to the inherent limitations of voice recognition software.
Discharge Plan
Departure
Patient Disposition: Admit
Date of Disposition: 11/07/25
Time of Disposition: 11:41
Admit to: IMU
Presentation/result/management discussed w/ accepting MD/DO: Hospitalist
Condition: Fair
Discharge Problem:
Accidental overdose
Interventions
Interventions:
*General Assessment Last Done: 11/07/25 09:56
*ED COVID-19 Vaccine History Last Done: 11/07/25 09:56
*ED Influenza Vaccine History Last Done: 11/07/25 09:56
[facility] Fall Risk Assessment Tool Last Done: 11/07/25 09:59
ED- Cardiac Assessment Last Done: 11/07/25 14:14
ED- Neurological Assessment Last Done: 11/07/25 14:13
ED-Psychological Assessment Last Done: 11/07/25 14:12
ED- Pulmonary Assessment Last Done: 11/07/25 14:13
[2025-11-07] MEDS: NSS 1000 IV ×2 (09:00→18:11)
[2025-11-07 09:02] LABS: Hematocrit 32.9 % (37.0-47.0); Hemoglobin 10.9 g/dL (12.0-16.0); Mean Corp Hgb Conc. 33.1 g/dL (33.0-37.0); Mean Corpuscular Volume 95.9 fL (81.0-99.0); Nucleated Red Blood Cells % 0 %; Platelet Count 133 10^3/uL (130-400); Red Cell Dist. Width 11.8 % (11.5-14.5)
[2025-11-07 09:17] LABS: Urine Character Clear (Clear)
[2025-11-07 09:32] LABS: ALT (SGPT) 22 U/L (0-35); AST (SGOT) 29 U/L (14-36); Albumin 3.9 g/dl (3.5-5.0); Alkaline Phosphatase 85 U/L (38-126); Blood Urea Nitrogen 10 mg/dl (7-17); Calcium 8.6 mg/dl (8.4-10.2); Carbon Dioxide 28 mmol/L (22-30); Chloride 100 mmol/L (98-107); Estimated Creatinine Clearance 74 ml/min; Glucose 168 mg/dl (70-99); Potassium 3.4 mmol/L (3.5-5.1); Sodium 131 mmol/L (135-145); Total Protein 6.0 g/dl (6.3-8.2); eGFR > 60.00
[2025-11-07 10:44] LABS: Acetaminophen < 10 ug/ml (10-30); Salicylate < 1.0 mg/dl (2.0-20.0)
--- NOTE | 2025-11-07 12:34 | HPS.HSE ---
Family Physician
-
Family Physician: INTERVIEWE UNKNOWN - PT NOT
Chief Complaint
-
Accidental Overdose
History of Present Illness
60 year old female with a past medical history of bipolar disorder, anxiety and depression presented to the ED with increased somnolence, unresponsiveness. As per her , she had called him earlier this morning letting him know that she had
accidentally taken a second dose of her Lamotrigine and Caplyta this morning. She had taken her regular dose last night and this morning mistakenly took them again as her bottles were not labeled. She also proceeded to call poison control afterwards
who told her that she may be a bit somnolent but not to be too worried. She continued to get more and more somnolent and prompted transport to the hospital via ambulance as she became more unresponsive. She did not have any somnolence or symptoms
before this morning. She has accidentally ingested extra Lamotrigine in the past but it has not caused her to be this somnolent before.
Medical History
Past Medical History
Past Medical History: Reports Psychiatric (Bipolar, Anxiety, Depression)
Past Surgical History: Reports Bowel Resection, Gynocological (Hysterectomy) and Other (Pelvic/Rectal Prolapse)
Social History
Tobacco: Non-smoker
Alcohol: None
Drug: None
Personal:
Living: With Family
Employment: Employed
Family History
Family History: Other (Father: Heart Disease)
Allergies / Home Medications
Allergies reflects when Allergies were last updated in [facility].
Home Medications with original date entered in [facility]
Allergy/Medication List:
Allergies
Allergy/AdvReac Type Severity Reaction Status Date / Time
hydrocodone Allergy Intermediate Itching Verified 09/17/25 10:32
oxycodone Allergy Intermediate Itching Verified 09/17/25 10:32
prochlorperazine edisylate Allergy Intermediate Unknown Verified 09/17/25 10:32
(From Compazine)
prochlorperazine maleate Allergy Intermediate Unknown Verified 09/17/25 10:32
(From Compazine)
Home Medications
duloxetine 30 mg capsule,delayed release 90 mg PO DAILY Depression 07/06/24
lamotrigine 200 mg tablet 600 mg PO HS Seizures 07/06/24
lumateperone 42 mg capsule (Caplyta) 42 mg PO HS bipolar 07/06/24
clonazepam 1 mg tablet 1 mg PO BIDPRN PRN anxiety 11/07/25
meloxicam 7.5 mg tablet 7.5 mg PO DAILYPRN PRN mild pain 11/07/25
rosuvastatin 10 mg tablet (Crestor) 10 mg PO DAILY High Cholesterol 11/07/25
Review of Systems
-
Unable to obtain full review of systems at this time due to: Acuity
History Source: Patient and Family
A 12 point ROS was completed and negative except as noted: Yes
Constitutional: Reports Fatigue and Other
EENT: Reports No Symptoms
Respiratory: Reports No Symptoms
Cardiac: Reports No Symptoms
Abdomen/GI: Reports No Symptoms
: Reports No Symptoms
Musculoskeletal: Reports No Symptoms
Skin: Reports No Symptoms
Neurological: Reports Weakness
Psych: Reports Calm
Physical Exam
Vital Signs
Vital Signs
Temp Pulse Resp BP Pulse Ox
96.1 F L 69 15 114/69 100
11/07/25 08:32 11/07/25 10:00 11/07/25 09:30 11/07/25 09:30 11/07/25 08:57
Physical Exam
General: No Apparent Distress, Comfortable and Conversant
HEENT: NormoCephalic, Anicteric, Moist mucous membranes and Atraumatic
Respiratory: Clear and Non Labored Respirations
Cardiac: S1/S2 and Regular Rhythm
GI: Soft, Non Tender and Non Distended
Musculoskeletal: No Clubbing, No Cyanosis and No Edema
Skin: Warm and Dry
Neuro: Awake
Psych: Other (Very Somnolent but responsive)
Laboratory Results
-
11/07/25:
11/07/25
Laboratory Results
Total Bilirubin 0.5 mg/dl (0.2-1.3) 11/07/25
AST 29 U/L (14-36) 11/07/25
ALT 22 U/L (0-35) 11/07/25
Alkaline Phosphatase 85 U/L (38-126) 11/07/25
Data Reviewed
-
CT Scan: Report Reviewed by me, Discussed with Physician, Discussed with Patient and Discussed with Family
Medical Tests (Nuc Med, Echo, EKG etc): Report Reviewed by me, Discussed with Physician, Discussed with Patient and Discussed with Family
Lab Data: Labs Reviewed by me, Discussed with Physician, Discussed with Patient and Discussed with Family
Impression/Plan
-
Assessment:
60-year-old female with past medical history of bipolar disorder, anxiety and depression presents to the ED due to accidental overdose on Caplyta and lamotrigine this morning. Following ingestion of extra medication, became somnolent and
unresponsive. Was brought to the ED via ambulance due to unresponsiveness. EKG showed no remarkable changes, head CT was normal. Given IV fluids and supplemental oxygen. Became more responsive and conversant following few hours in the ED. Will
be admitting for observation overnight.
Plan:
# Somnolence following accidental overdose with psych medication
- Head CT normal, EKG showed no acute changes
- Becoming more more awake, now conversant
- Discussed importance of being careful with taking the correct dose of medications in the future
- Patient and family adamant that overdose was accidental
- UDS Negative, Acetaminophen/Salicylates level normal. No alcohol detected
- Will admit for observation overnight
- Consulted psych, input appreciated. Patient and family wanted to know if current psych medications are the right regimen
- Holding on psych medication until tomorrow
- Will continue IVF (NS)
- Will repeat EKG in the morning for QTc monitoring
# Hypothermia
- Will check TSH w/ Reflex T4 in the morning
- Most likely related to overdose of medication
# Hypokalemia
- Will give 40 mEq today
- Will monitor and replete potassium as needed
- Check Mg in the AM
# Anxiety and depression
- Holding on clonazepam and duloxetine for now
- Pending psych recommendations
Regular Diet as tolerated
Full Code
DVT Prophylaxis: Lovenox
--- NOTE | 2025-11-07 14:32 | W.PN.UPDATE ---
Update Note
Progress Note Update
Patient seen with residents.
HPI: 60 year old female with past medical history of bipolar disorder, anxiety and depression; presented to the ED with increased somnolence/unresponsiveness, due to accidental overdose of her psychotropic medication (taken an additional dose of
Lamotrigine and Caplyta in the morning).
She also proceeded to call poison control who told her that she may be a bit somnolent but not to be too worried. She continued to get more and more somnolent and was unresponsive, hence brought to the ED.
In the ED, she was lethargic but arousable, AO x 3 with appropriate conversation.
A/P:
# Somnolence due to accidental overdose with psychotropic medication
Head CT normal, EKG showed no acute changes
UDS Negative, Acetaminophen/Salicylates level normal. No alcohol detected
Consulted psych, follow up recc
Holding psychotropic medication for now until further instructed by psychiatrist
# Hypothermia,
check TSH w/ Reflex
Most likely related to overdose of medication
# Hypokalemia
replete
# Anxiety and depression
Holding on clonazepam and duloxetine for now
Pending psych recommendations
Regular Diet as tolerated
Full Code
DVT Prophylaxis: Lovenox
--- NOTE | 2025-11-07 15:16 | CON.MD ---
Consultation - Medical
-
patient seen chart reviewed. consult done today november 07 2025. with patient permit spoke to . patient is a 61 year old woman who was dx bipolar but does not appear to be convinced she is bipolar who was seeing dr jennifer moreland for psych
medications. she has been on the same regimen for years and states she has been stable for more than five years. medication regimen as follows cymbalta 120 mg daily lamictal 600 mg daily klonopin she states she takes o.5 mg tid and often
an extra at lunchtime daily, caplyta 42 mg daily. she stopped seeing dr moreland about a year ago as he no longer took insurance and her pcp was prescribing. about a month ago she started feeling increasingly anxious. when she was working (she is a
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 she said sometimes she would start experiencing making noises like clearing her throat over and over in voluntarily. she
was recommended for 'therapy ' and has had three sessions of psychotherapy as recommended by pcp before making any med changes. she is here bc this am she inadvertently took her medications twice (all of those aforementioned). she said she took
them as she normally would and then they were suddenly in her pill box slot again. she thought nothing of it and took them. she adamantly denies she was trying to OD as does her h. the patient called poison control. they told her at worst she
might be dizzy or sedated. she tried to go to work but found that she was dizzy and called her . she could not even tell him where she was. she was able to hail down a car and the third car stopped and helped her staying w her till help
arrived. she is dizzy now but able to talk coherently. she was sleeping reasonably well even thought the anxiety was exacerbating. she does not eat much. she has lost 70 lbs in the last year . her bmi is 19 she is 5'2' and weights about 100 lbs.
says she has hx of anorexia in her very young years (teens and 20's ) and he worries she has gone overboard with weight loss. she has never had suicidal thoughts. there is nothing to suggest psychosis. i cannot hear a hx of true hypomania
or tre. there is hx of depression and anxiety. further hx to be gathered tomorrow.
past psych hx see above
medical hx see above bp 127/70 patient w hx surgery for rectal prolopse (with hysterectomy) noted patient has had four cat scans of the brain in recent year. there is hx of falling noted. when i asked her about this she said she has 'forgotten'
to take her meds and she believes that is reason for fall. hld (crestor) meloxicam (tmj pain)
family hx mother w depression. denies fh bipolar
social h supportive he is data security consultant here at . she works here see above five kids including two adopted from [place]. has friends but since working does not see them much. used to enjoy reading and going to the gym.
mse alert ox3 some sedation from over medication this am. speech generally soft goal oriented often she would start to whisper thought process goal oriented no psychosis mood is anxious affect appropriate no si aver intelligence insight judgment
fair
dx accidental overdose of psychiatric medications r/o bipolar disorder
recommendations for now hold all psych medications. this regimen may be overshooting the rahul. 600 mg lamictal is a large dose for this diminutive woman and she is at the top dose of cymbalta. also daily 2 mg klonopin may be a concern.
according to h she was very stable for some time until recent months so that too needs to be taken into consideration. psych will talk with her tomorrow and make recommendations re med regimen. check b12 folate and tsh reflex to t4. not quite
sure what to make of the recent hx of falling. this is the fourth cat scan of the brain in a little over a year.
--- NOTE | 2025-11-07 17:41 | PTCARENOTE ---
Pt to rm 324 from ED. Upon admission, c/o not being able to void. Asked for bedpan, refused to get OOB to commode d/t dizziness. Unable to void on bed osria. Bladder scan 1571ml - TT to provider for bladder scan/straight cath protocol. Straight cathed
for 1600 clear yellow/clear urine.
[2025-11-07] MEDS: KCL 270 MEQ IV (18:11)
[2025-11-07] MEDS: LOVENOX 40 MG SC (18:18)
[2025-11-08 06:00] VITALS: BMI 18.5
[2025-11-08 06:05] LABS: Hematocrit 33.3 % (37.0-47.0); Hemoglobin 11.3 g/dL (12.0-16.0); Mean Corp Hgb Conc. 33.9 g/dL (33.0-37.0); Mean Corpuscular Volume 96.5 fL (81.0-99.0); Nucleated Red Blood Cells % 0 %; Platelet Count 157 10^3/uL (130-400); Red Cell Dist. Width 11.4 % (11.5-14.5)
[2025-11-08 06:58] LABS: ALT (SGPT) 22 U/L (0-35); AST (SGOT) 30 U/L (14-36); Albumin 4.0 g/dl (3.5-5.0); Alkaline Phosphatase 69 U/L (38-126); Blood Urea Nitrogen 7 mg/dl (7-17); Calcium 9.3 mg/dl (8.4-10.2); Carbon Dioxide 26 mmol/L (22-30); Chloride 104 mmol/L (98-107); Estimated Creatinine Clearance 62 ml/min; Glucose 87 mg/dl (70-99); Magnesium 1.9 mg/dl (1.6-2.3); Potassium 4.3 mmol/L (3.5-5.1); Sodium 136 mmol/L (135-145); Total Protein 6.1 g/dl (6.3-8.2); eGFR > 60.00
[2025-11-08 07:07] LABS: Vitamin D, 25-OH*** 21.4 ng/mL (30-80)
[2025-11-08 07:54] LABS: Folate > 20.0 ng/ml (2.76-20); Vitamin B12 678 pg/ml (239-931)
[2025-11-08 07:55] VITALS: BP 131/81
[2025-11-08] MEDS: CRESTOR 10 MG PO (08:30)
[2025-11-08] MEDS: VITAMIN D3 (cholecalciferol) 50 MCG PO (08:30)
--- NOTE | 2025-11-08 08:33 | W.PN.HOSP.TC ---
Addendum entered and electronically signed by Idalia Sy MD 11/08/25 12:51:
HPI: 60 year old female with past medical history of bipolar disorder, anxiety and depression; presented to the ED with increased somnolence/unresponsiveness, due to accidental overdose of her psychotropic medication (taken an additional dose of
Lamotrigine and Caplyta in the morning).
She also proceeded to call poison control who told her that she may be a bit somnolent but not to be too worried. She continued to get more and more somnolent and was unresponsive, hence brought to the ED.
In the ED, she was lethargic but arousable, AO x 3 with appropriate conversation.
A/P:
# Somnolence due to accidental overdose with psychotropic medication, MS back to baseline/normal
Head CT normal, EKG showed no acute changes
UDS Negative, Acetaminophen/Salicylates level normal. No alcohol detected
Psych on board, follow-up recommendation for psychotropic medication
# Hypothermia, resolved
Most likely related to overdose of medication
TSH WNL at 1.19
# Hypokalemia
repleted and resolved
# Anxiety and depression
Holding on clonazepam and duloxetine for now
Pending psych recommendations for psychotropic medications
Regular Diet as tolerated
Full Code
DVT Prophylaxis: Lovenox
Original Note:
Today's Communication/Plan
-
PT Eval
Continue IVF until tolerating more PO diet
Resume medications as per recommendations from Psych
Assessment / Plan
Assessment / Plan
Assessment:
60-year-old female with past medical history of bipolar disorder, anxiety and depression presents to the ED due to accidental overdose on Caplyta and lamotrigine this morning. Following ingestion of extra medication, became somnolent and
unresponsive. Was brought to the ED via ambulance due to unresponsiveness. EKG showed no remarkable changes, head CT was normal. Given IV fluids and supplemental oxygen. Became more responsive and conversant following few hours in the ED. All
psych medications were held and patient was admitted for observations. She continues to improve and feeling less lethargic now.
Plan:
# Somnolence following accidental overdose with psych medication
- Head CT normal, EKG showed no acute changes
- Becoming more more awake, now conversant
- Discussed importance of being careful with taking the correct dose of medications in the future
- Patient and family adamant that overdose was accidental
- UDS Negative, Acetaminophen/Salicylates level normal. No alcohol detected
- Consulted psych, input appreciated. Patient and family wanted to know if current psych medications are the right regimen
- Psych medications hold following recommendations from psychiatry regarding which ones to begin again
- Vitamin B12 levels in normal range, Folate elevated
- Will continue IVF (NS) and diet as tolerated
- Repeat EKG:
- Much more awake and responsive today
- PT evaluation ordered
# Hypothermia
- Resolved
- TSH within normal limits
# Vitamin D Deficiency
- Started vitamin D repletion
# Hypokalemia
- Repleted yesterday, monitor and replete as needed
# Anxiety and depression
- Holding on clonazepam and duloxetine for now
- Pending psych recommendations as to which medications to resume
Regular Diet as tolerated
Full Code
DVT Prophylaxis: Lovenox
Anticipated Discharge: Within 24 hours
Subjective/Interval History
-
Date of Service: November 08, 2025
Patient seen this morning resting comfortably in her bed. Reports that she is feeling much better, a lot more awake and less dizzy than before. Has not really been able to eat as did not have any appetite but overnight 'devouered word some
pretzels'. Had some difficulty sleeping last night as she usually takes her medications before sleeping as well as melatonin, but otherwise feeling much better.
Objective Data
-
Labs:
Laboratory Results
11/08/25
05:49
WBC 6.3
Hgb 11.3 L
Hct 33.3 L
Plt Count 157
Sodium 136
Potassium 4.3 D
Chloride 104
Carbon Dioxide 26
BUN 7
Creatinine 0.7
Glucose 87
Calcium 9.3
Total Bilirubin 0.6
AST 30
ALT 22
Alkaline Phosphatase 69
Vital Signs:
Vital Signs
Temp Pulse Resp BP Pulse Ox
98.1 F 67 14 131/81 100
11/08/25 07:55 11/08/25 07:55 11/08/25 07:55 11/08/25 07:55 11/08/25 07:55
I&O
11/07/25 11/08/25 11/09/25
06:59 06:59 06:59
Intake Total 480 / 480
Output Total 1600 / 1600
Balance -1120 / -1120
Review of Systems
-
History Source: Patient
Constitutional: Reports No Symptoms
Respiratory: Reports No Symptoms
Cardiac: Reports No Symptoms
Abdomen/GI: Reports No Symptoms
Genitourinary: Reports No Symptoms
Musculoskeletal: Reports No Symptoms
Skin: Reports No Symptoms
Neuro: Reports No Symptoms
Physical Exam
-
General: Well Developed, No Apparent Distress, Comfortable and Conversant
HEENT: Normocephalic, Atraumatic and Moist Mucous Membranes
Respiratory: Clear to Auscultation and Non Labored Respirations
Cardiac: Regular Rhythm and S1/S2; Negative Murmur
GI: Soft, Nontender and Nondistended
Musculoskeletal: No Clubbing, No Cyanosis and No Edema
Skin: Warm and Dry
Neuro: Awake, Alert, Oriented, AO x 3 and No Motor Deficits; Negative Tremors or Sedated
Psych: Calm
Data Reviewed
-
Labs: Labs Reviewed by me, Discussed with Physician and Discussed with Patient
[2025-11-08 09:31] VITALS: BP 122/73; PULSE 48; O2SAT 100
[2025-11-08] MEDS: NSS 1000 IV (10:32)
[2025-11-08] MEDS: TYLENOL 650 MG PO (11:04)
[2025-11-08 12:56] VITALS: BMI 18.5
--- NOTE | 2025-11-08 14:45 | W.PN.UPDATE ---
Update Note
Progress Note Update
pt seen, chart reviewed, discussed with nurse, met with . Has unclear history of bipolar disorder with chronic anxiety for which she has taken a regimen of quite high lamictal, high cymbalta, standard Caplyta, and higher than usual Klonpin.
pt very worried about withdrawal, 'I need something' despite being markedly overdosed yesterday (accidental.)
With great trepidation pt willing to wean off clonopin over long period (reduce by 10% weekly) as well as reduce lamictal to more usual dose of 400 mg.
discussed with , will also be starting therapy and psychiatric care soon.
so for now, plan is
lamicatal 400 mg nightly (two x 200 mg)
cymbalta 90 mg am (three x 30 mg)
Caplyta 42 mg hs (one)
Klonopin 0.5 mg tid (half of the 1 mg tablets she has been prescribed.)
[2025-11-08 15:20] VITALS: BP 140/76
--- NOTE | 2025-11-08 16:35 | CM ---
Patient seen at bedside
IA completed
Patient lives with her and 2 children in a 2 story home, 2 [address], flight stairs to bed/bathroom
PLOF: independent, works in [employer] at
Denies DME
Denies VN, has had outpatient therapy in past for her shoulder
PT eval-no needs
offered vn-declines
states Dr. Farley in to see her (note not in yet)
PCP: Stacey Ramos
Pharmacy: [facility], [address], [place]
PLAN: Home, no needs
to transport
[2025-11-08] MEDS: LOVENOX 40 MG SC (17:06)
[2025-11-08] MEDS: LAMICTAL 400 MG PO (21:41)
[2025-11-08] MEDS: MELATONIN 5 MG PO (21:41)
[2025-11-08 23:15] VITALS: BP 115/76
[2025-11-09 06:55] LABS: Hematocrit 37.1 % (37.0-47.0); Hemoglobin 12.5 g/dL (12.0-16.0); Mean Corp Hgb Conc. 33.7 g/dL (33.0-37.0); Mean Corpuscular Volume 95.1 fL (81.0-99.0); Platelet Count 167 10^3/uL (130-400); Red Cell Dist. Width 11.8 % (11.5-14.5)
[2025-11-09 07:18] LABS: ALT (SGPT) 23 U/L (0-35); AST (SGOT) 30 U/L (14-36); Albumin 4.4 g/dl (3.5-5.0); Alkaline Phosphatase 83 U/L (38-126); Blood Urea Nitrogen 10 mg/dl (7-17); Calcium 9.6 mg/dl (8.4-10.2); Carbon Dioxide 28 mmol/L (22-30); Chloride 102 mmol/L (98-107); Estimated Creatinine Clearance 62 ml/min; Glucose 99 mg/dl (70-99); Sodium 138 mmol/L (135-145); Total Protein 6.8 g/dl (6.3-8.2); eGFR > 60.00
[2025-11-09 07:25] LABS: Potassium 4.0 mmol/L (3.5-5.1)
[2025-11-09 07:47] VITALS: BP 135/79
[2025-11-09] MEDS: CYMBALTA DELAYED RELEASE 90 MG PO (08:02)
[2025-11-09] MEDS: CRESTOR 10 MG PO (08:02)
[2025-11-09] MEDS: VITAMIN D3 (cholecalciferol) 50 MCG PO (08:02)
--- NOTE | 2025-11-09 08:22 | W.PN.HOSP.TC ---
Today's Communication/Plan
-
Discharge today with appropriate psychiatric medication changes per psychiatry
Follow-up with outpatient psychiatrist to wean off of clonazepam
Assessment / Plan
Assessment / Plan
Assessment:
60-year-old female with past medical history of bipolar disorder, anxiety and depression presents to the ED due to accidental overdose on Caplyta and lamotrigine this morning. Following ingestion of extra medication, became somnolent and
unresponsive. Was brought to the ED via ambulance due to unresponsiveness. EKG showed no remarkable changes, head CT was normal. Given IV fluids and supplemental oxygen. Became more responsive and conversant following few hours in the ED. All
psych medications were held and patient was admitted for observations. She continues to improve and feeling less lethargic now.
Plan:
# Somnolence following accidental overdose with psych medication
- Head CT normal, EKG showed no acute changes
- Becoming more more awake, now conversant
- Discussed importance of being careful with taking the correct dose of medications in the future
- Patient and family adamant that overdose was accidental
- UDS Negative, Acetaminophen/Salicylates level normal. No alcohol detected
- Consulted psych, input appreciated. Patient and family wanted to know if current psych medications are the right regimen
- Psych medications hold following recommendations from psychiatry regarding which ones to begin again
- Vitamin B12 levels in normal range, Folate elevated
- Will continue IVF (NS) and diet as tolerated
- Repeat EKG: Sinus bradycardia with improved QTc 464 -> 371
- Much more awake and responsive today
- PT evaluation ordered
- Psychiatry medication recommendations as below:
- lamotrigine 400 nightly
- Clonazepam 0.5 3 times daily - will instruct patient to attempt to start wean 0.5 BID if possible at home
- Duloxetine 90 daily
- Caplyta 42 mg nightly
#Leukocytosis
- WBC 6.3 -> 11.2 today
- No signs of clinical infection
- Unclear if this is a possible side effect of medication ?
- Discharge today with repeat CBC in one week to follow WBC and instructions to f/u with PCP
# Hypothermia
- Resolved
- TSH within normal limits
# Vitamin D Deficiency
- Started vitamin D repletion
# Hypokalemia
- Repleted yesterday, monitor and replete as needed
# Anxiety and depression
# bipolar disorder
- Psych meds previously on hold with overdose
- Restart psych meds with doses per psychiatry as noted below
Regular Diet as tolerated
Full Code
DVT Prophylaxis: Lovenox
Anticipated Discharge: Today
Subjective/Interval History
-
Date of Service: November 09, 2025
No complaints overnight. Feeling significantly better, more awake and with it than prior.
Objective Data
-
Labs:
Laboratory Results
11/09/25
06:18
WBC 11.2 H
Hgb 12.5
Hct 37.1
Plt Count 167
Sodium 138
Potassium 4.0
Chloride 102
Carbon Dioxide 28
BUN 10
Creatinine 0.7
Glucose 99
Calcium 9.6
Total Bilirubin 0.8
AST 30
ALT 23
Alkaline Phosphatase 83
Vital Signs:
Vital Signs
Temp Pulse Resp BP Pulse Ox
97.9 F 70 16 135/79 98
11/09/25 07:47 11/09/25 07:47 11/09/25 07:47 11/09/25 07:47 11/09/25 07:47
I&O
11/08/25 11/09/25 11/10/25
06:59 06:59 06:59
Intake Total 480 / 480 720 / 720
Output Total 1600 / 1600
Balance -1120 / -1120 720 / 720
Review of Systems
-
History Source: Patient
Constitutional: Reports No Symptoms
EENT: Reports No Symptoms Reported
Respiratory: Reports No Symptoms
Cardiac: Reports No Symptoms
Abdomen/GI: Reports No Symptoms
Genitourinary: Reports No Symptoms
Skin: Reports No Symptoms
Neuro: Reports No Symptoms
Allergy / Immunology: Reports No Symptoms
Physical Exam
-
General: No Apparent Distress and Comfortable
HEENT: Normocephalic
Respiratory: Clear to Auscultation
Cardiac: Regular Rhythm and S1/S2
GI: Soft, Nontender, Nondistended and Normal Bowel Sounds
Musculoskeletal: No Cyanosis and No Edema
Skin: Warm and Dry
Neuro: AO x 3
Psych: Calm
--- NOTE | 2025-11-09 10:45 | CM ---
CM following for discharge planning; no need for PT/OT identified. Pt has family support and anticipates discharge to home; her will provide transport at discharge.
--- NOTE | 2025-11-09 10:50 | CM ---
CM following for discharge to home. Pt was seen by Dr. Farley yesterday and recommendation is for patient to reduce her medication regimen and discharge to home with outpatient psychiatric care.
Plan: Discharge to home with outpatient follow up with psychiatry. CM to follow up with patient regarding psychiatric provider if not already identified.
--- NOTE | 2025-11-09 13:08 | CM ---
ISAAC met with Silvia at bedside. She is being discharged to home today; her daughter will drive her home.
We spoke about follow up care; Silvia will be seeing Dr. Lagunas as an outpatient for medication management. She has also utilized an online psychiatrist previously, but did not like the virtual platform. Silvia is looking forward to going home and is
feeling better and has a better understanding of her medication regimen.
Plan: Discharge to home with outpatient follow up with Dr. Lagunas.
--- NOTE | 2025-11-09 13:33 | CM ---
Patient had been issued the Medicare Outpatient OBS form. CM provided patient with the outpatient observation form which is signed, patient provided with a copy.
Silvia is looking forward to going home and is feeling better and has a better understanding of her medication regimen.
Plan: Discharge to home with outpatient follow up with Dr. Lagunas.
--- NOTE | 2025-11-09 14:04 | W.PN.UPDATE ---
Addendum entered and electronically signed by Idalia Sy MD 11/10/25 12:17:
Total DC time 40 minutes
Original Note:
Update Note
Progress Note Update
Patient seen and discussed with residents.
HPI: 60 year old female with past medical history of bipolar disorder, anxiety and depression; presented to the ED with increased somnolence/unresponsiveness, due to accidental overdose of her psychotropic medication (taken an additional dose of
Lamotrigine and Caplyta in the morning).
She also proceeded to call poison control who told her that she may be a bit somnolent but not to be too worried. She continued to get more and more somnolent and was unresponsive, hence brought to the ED.
In the ED, she was lethargic but arousable, AO x 3 with appropriate conversation.
A/P:
# Somnolence due to accidental overdose with psychotropic medication, resolved
# h/o Anxiety and depression
Head CT normal, EKG showed no acute changes
UDS Negative, Acetaminophen/Salicylates level normal. No alcohol detected
Appreciate psych input, recc:
lamicatal 400 mg nightly (two x 200 mg), cymbalta 90 mg am (three x 30 mg), Caplyta 42 mg hs (one), Klonopin 0.5 mg tid (half of the 1 mg tablets she has been prescribed).
Extensive discussion with patient regarding risk of clonazepam. Recommend to consider taking twice daily dosing if tolerates. Patient willing to try twice daily dosing outpatient.
Also informed that the patient should follow-up closely with psychiatrist outpatient.
# Hypothermia, resolved
Most likely related to overdose of medication
TSH WNL at 1.19
# Hypokalemia
repleted
Regular Diet as tolerated
Full Code
DVT Prophylaxis: Lovenox
--- NOTE | 2025-11-09 14:42 | W.PN.UPDATE ---
Update Note
Progress Note Update
events of last night noted. pt states she was unaware that she created such a fuss, was just asking about her meds. she agrees that she is too reliant on klonpin, willing to wean very slowly. affect animated, looking forward to going home.
--- NOTE | 2025-11-09 16:40 | W.DCSUMMARY ---
Documented by User: Sachi Solorzano MD, Resident 11/09/25 16:58
Discharge Summary
Discharge Data
Date of Admission: 11/07/25
Date of Discharge: 11/09/25
-
Pending Results: No
Hospital Course
Primary diagnosis:
Somnolence due to accidental overdose of psychiatric medications
Hypokalemia, resolved
hypothermia, resolved
anxiety/Depression/Bipolar disorder
Hospital course:
60-year-old female with past medical history of bipolar disorder, anxiety and depression presents to the ED due to accidental overdose on Caplyta and lamotrigine this morning. Following ingestion of extra medication, became somnolent and
unresponsive. Was brought to the ED via ambulance due to unresponsiveness. EKG showed no remarkable changes, head CT was normal. Given IV fluids and supplemental oxygen. Became more responsive and conversant following few hours in the ED. All
psych medications were held and patient was admitted for observation. During her stay, she continued to improve and became more alert and oriented. Psychiatry saw her and changed her lamotrigine from 600 mg to 400 mg nightly and recommended her to
discuss tapering her clonazepam with her outpatient PCP or psychiatrist.
Today, patient is clinically stable for discharge. We recommended attempting to start the tapering process of clonazepam from 0.5 three times daily to 0.5 twice daily. Her lamotrigine is also being changed from 600 mg nightly to 400 mg nightly.
There has been no other changes to her other medications. Today, she was noted to have a white count of 11.2 however no signs of clinical infection. She was provided a CBC to repeat in 1 week and instructed to follow-up with PCP if any signs of
infection develop.
Discharge Plan
-
Patient Disposition: Home (Routine Discharge)
Discharge Diagnosis/Procedures: Somnolence due to accidental overdose of psychiatric medications
Hypokalemia, resolved
hypothermia, resolved
anxiety/Depression/Bipolar disorder
Condition: Good
Diet: As tolerated
Activity: No restrictions
Driving Restrictions: As prior to admission
Bathing Restrictions: None
Activity Restrictions/Additional Instructions:
Please discuss weaning off of your clonazepam slowly with your PCP or psychiatrist. We recommend attempted to start weaning with clonazepam 0.5mg twice daily instead of three times a day. You may also consider discussing a short acting
benzodiazepine with your psychiatrist for panic attacks.
Your lamotrigine dose has been changed from 600mg nightly to 400mg nightly by our inpatient psychiatrist in the hospital.
You had an elevated white blood cell count in the hospital, but no clinical signs of infection. Please do a repeat CBC in one week to check your WBC and follow up with your PCP for any additional symptoms.
You were also noted to be vitamin D deficient. Please continue vitamin D supplementation.
Referrals:
UNKNOWN - PT NOT,INTERVIEWE [Family Provider]
Prescriptions:
New
cholecalciferol (vitamin D3) 50 mcg (2,000 unit) Tablet
50 mcg PO DAILY Qty: 20 0RF
lamotrigine 200 mg tablet
400 mg PO HS Qty: 60 0RF
clonazepam [Klonopin] 0.5 mg tablet
0.5 mg PO BID Qty: 60 0RF
Continued
duloxetine 30 mg Capsule,Delayed Release(Dr/Ec)
90 mg PO DAILY
Caplyta 42 mg Capsule
42 mg PO HS
meloxicam 7.5 mg Tablet
7.5 mg PO DAILYPRN PRN (Reason: mild pain)
rosuvastatin [Crestor] 10 mg Tablet
10 mg PO DAILY
Discontinued
lamotrigine 200 mg Tablet
600 mg PO HS
clonazepam 1 mg Tablet
1 mg PO BIDPRN PRN (Reason: anxiety)
Patient Comments:
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
Discharge Orders:
Discharge Patient (As Directed); Ordered 11/09/25
Ordered By: Sachi Solorzano
Discharge Date and Time
Discharge Date/Time: 11/09/25 15:06
Print Language: MOZAMBICAN

Documented by User: Idalia Sy MD 11/10/25 12:17
Discharge Summary
Discharge Data
Date of Admission: 11/07/25
Date of Discharge: 11/09/25
Hospital Course
Primary diagnosis:
Somnolence due to accidental overdose of psychiatric medications
Hypokalemia, resolved
hypothermia, resolved
anxiety/Depression/Bipolar disorder
Hospital course:
60-year-old female with past medical history of bipolar disorder, anxiety and depression presented to the ED due to accidental overdose on Caplyta and lamotrigine. Following the ingestion of these extra medications, she became somnolent but awakes
to verbal stimuli. She was brought to the ED via ambulance due to unresponsiveness. Her EKG showed no remarkable changes, and her head CT was normal.
She became more responsive and conversant, with return of her mental status back to baseline while in the hospital.
Psychiatrist was consulted, and adjusted her psychiatric medications as such:
lamotrigine from 600 mg to 400 mg nightly,
taper her clonazepam outpatient with PCP or psychiatrist. We have recommended her to consider decreasing clonazepam from 0.5 three times daily to 0.5 twice daily.
Discharge Plan
-
Patient Disposition: Home (Routine Discharge)
Discharge Diagnosis/Procedures: Somnolence due to accidental overdose of psychiatric medications
Hypokalemia, resolved
hypothermia, resolved
anxiety/Depression/Bipolar disorder
Condition: Good
Diet: As tolerated
Activity: No restrictions
Driving Restrictions: As prior to admission
Bathing Restrictions: None
Activity Restrictions/Additional Instructions:
Please discuss weaning off of your clonazepam slowly with your PCP or psychiatrist. We recommend attempted to start weaning with clonazepam 0.5mg twice daily instead of three times a day. You may also consider discussing a short acting
benzodiazepine with your psychiatrist for panic attacks.
Your lamotrigine dose has been changed from 600mg nightly to 400mg nightly by our inpatient psychiatrist in the hospital.
You had an elevated white blood cell count in the hospital, but no clinical signs of infection. Please do a repeat CBC in one week to check your WBC and follow up with your PCP for any additional symptoms.
You were also noted to be vitamin D deficient. Please continue vitamin D supplementation.
Referrals:
UNKNOWN - PT NOT,INTERVIEWE [Family Provider]
Prescriptions:
New
cholecalciferol (vitamin D3) 50 mcg (2,000 unit) Tablet
50 mcg PO DAILY Qty: 20 0RF
lamotrigine 200 mg tablet
400 mg PO HS Qty: 60 0RF
clonazepam [Klonopin] 0.5 mg tablet
0.5 mg PO BID Qty: 60 0RF
Continued
duloxetine 30 mg Capsule,Delayed Release(Dr/Ec)
90 mg PO DAILY
Caplyta 42 mg Capsule
42 mg PO HS
meloxicam 7.5 mg Tablet
7.5 mg PO DAILYPRN PRN (Reason: mild pain)
rosuvastatin [Crestor] 10 mg Tablet
10 mg PO DAILY
Discontinued
lamotrigine 200 mg Tablet
600 mg PO HS
clonazepam 1 mg Tablet
1 mg PO BIDPRN PRN (Reason: anxiety)
Patient Comments:
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
Discharge Orders:
Discharge Patient (As Directed); Ordered 11/09/25
Ordered By: Sachi Solorzano
Discharge Date and Time
Discharge Date/Time: 11/09/25 15:06
Print Language: MOZAMBICAN
== END 2025-11-09 15:06 | disposition home or self-care (01) ==
LOC: 3 WEST ACU 13:18
PROVIDERS: ADMITTING PHYSICIAN Internal Medicine; CONSULT PHYSICIAN Psychiatry & Neurology Psychiatry; EMERGENCY PHYSICIAN Emergency Medicine
DX: T42.6X1A Poisoning by other antiepileptic and sedative-hypnotic drugs, accidental (unintentional), initial encounter (principal); E87.6 Hypokalemia; T68.XXXA Hypothermia, initial encounter; F41.9 Anxiety disorder, unspecified; F31.9 Bipolar disorder, unspecified; Z88.5 Allergy status to narcotic agent; Z88.8 Allergy status to other drugs, medicaments and biological substances; Z79.899 Other long term (current) drug therapy; D72.829 Elevated white blood cell count, unspecified; E55.9 Vitamin D deficiency, unspecified; Z82.49 Family history of ischemic heart disease and other diseases of the circulatory system; Z90.710 Acquired absence of both cervix and uterus
CPT/HCPCS: 70450; 80053; 80143; 80179; 80306; 81003; 82077; 82306; 82607; 82746; 82962; 83735; 84443; 85025; 85027; 93005; 96360; 97162; 99285; G0378

== ENCOUNTER → 2025-11-16 12:55 | Outpatient (REF) | payer BC, SELFPAY | LOC: REG 12:55 | PROVIDERS: FAMILY PHYSICIAN Physician Assistant Medical | DX: D72.829 Elevated white blood cell count, unspecified (principal) | CPT/HCPCS: 36415; 85004 ==